=== PATIENT | male | born 1950 | race Caucasian/White ===

== ENCOUNTER 2023-09-05 23:00 | Observation (INO) ==
--- NOTE | 2023-09-05 23:12 | Emergency Department Note ---
Impression & Plan Syncope and collapse, Acute hypokalemia, Hypomagnesemia, Leukocytosis, Generalized weakness ED Provider Note HISTORY OF PRESENT ILLNESS: Patient is a 72-year-old male presenting with abdominal pain and after syncopal episode. Patient is amnestic to the events of the evening. The last thing he remembers was eating dinner. Per report from EMS, the patient has been having chronic constipation and abdominal pain for the last few weeks. He has recently been started on MiraLAX has been having diarrhea. He reportedly has had generalized abdominal pain recently. Today he went to have a bowel movement this evening and had a syncopal episode. Patient denies striking his head or loss of consciousness, but he does not remember it occurring. He is on aspirin and Plavix. He has a history of cardiac stents. Denies any current chest pain or shortness of breath. Reports feeling generally unwell. He denies any dark discoloration of his stool. He denies any recent fevers or dysuria. Patient did have 2 episodes of vomiting prior to EMS arrival. ROS: as above PHYSICAL EXAM: Constitutional: Patient appears in no acute distress. HENT: Head: Normocephalic and atraumatic. Eyes: EOMI, PERRL Mouth/Throat: Mucous membranes moist. Neck: Trachea midline. Neck supple. Cardiovascular: RRR, No murmurs, rubs or gallops. Intact distal pulses. Pulmonary/Chest: No respiratory distress. Breath sounds clear and equal bilaterally. No wheezes or rales. Abdominal: Abdomen soft, no tenderness, rebound or guarding. Musculoskeletal: No edema, tenderness or deformity noted. Skin: Warm and dry. No rash, erythema, pallor or cyanosis Psychiatric: Appropriate mood and affect for situation. Neurological: Alert and keenly responsive. CN II-XII grossly intact, moving all extremities equally and fully. MDM: - Vitals signs showed tachypnea and elevated temperature - History obtained via patient and EMS. History as above. - Chronic conditions affecting care: GERD; CAD (s/p PCI); HTN; HLD; rheumatoid arthritis - Differential diagnoses include, but are not limited to: CVA; intracranial hemorrhage; ACS; dysrhythmia; UTI; pneumonia; electrolyte abnormality - Order placed for continuous cardiac monitoring. At this time, monitor showed rate of 81 bpm with normal sinus rhythm, per my interpretation. - External medical records reviewed. Operative report dated 03/18/2022 was reviewed. Patient had symptomatic cholelithiasis and had a laparoscopic cholecystectomy performed on 03/18/2022. - EKG interpreted by myself showed normal sinus rhythm. Rate 81 bpm. QT 364. No acute ischemic changes - Laboratory workup interpreted by myself showed leukocytosis (WBC 11.27) with left shift; hypokalemia (K 3.4); hyponatremia (Na 131); hypomagnesemia (Mg 1.6); elevated total bilirubin (1.7); normal AST/ALT; normal CK; normal troponin; normal TSH; normal lipase - CXR negative for pneumonia, per my interpretation - CT head wo contrast negative for acute intracranial hemorrhage - CT abdomen/pelvis with IV contrast showed possible enterocolitis, per radiology. - Viral respiratory panel negative - Patient given 1g IV magnesium for electrolyte replacement. Given 1L NS and 1g IV tylenol for elevated temperature. - UA negative for infection. Noted to have trace ketones. - Discussion was had with director of casework services about patient's case and need for admission - Hospitalist consulted for admission - Patient admitted to [] service for further evaluation and management. ASSESSMENT AND PLAN: Diagnosis: syncope and collapse; leukocytosis; acute hypokalemia; hypomagnesemia; generalized weakness Plan: admit Past Med/Surg History Problem List (Updated 09/06/23 @ 02:38 by Usha Mata MD) Generalized weakness (Acute) Leukocytosis (Acute) Hypomagnesemia (Acute) Acute hypokalemia (Acute) Syncope and collapse (Acute) Hyperbilirubinemia (Acute) Abdominal pain (Acute) Lumbar stenosis with neurogenic claudication Encounter for pre-operative examination Choledocholithiasis Medical History Family history of reaction to anesthesia Sister slow to wake- groggy; pt denies any personal issues with anesthesia [place] (hard of hearing) Pancreatic cyst GERD (gastroesophageal reflux disease) Hiatal hernia Mitral valve prolapse Myocardial infarction 2005 CAD (coronary artery disease) S/p ramus and LCx stent (2005) S/p stent to LAD and RCA (2009) S/p stent to Ramus and LCx (2016) Hyperlipidemia Rheumatoid arthritis On Plaquenil HTN (hypertension) Surgical History Hx of endoscopic retrograde cholangiopancreatography 02/22/22 [place] History of colonoscopy History of bilateral hip replacements History of right shoulder replacement History of left shoulder replacement History of total right knee replacement History of back surgery 2003 History of endoscopy with ultrasound feb 21 2022 ([employer]) - stone in common bile duct & gallbladder is full of stones - had subsequent ERCP 02/22/22 History of cardiac cath Hx mi...stent x1 2006 stent x 1 2006, stent x 1 2009 History of lumbar fusion 2014 Family History Other No family history of adverse response to anesthesia Social History Smoking Status: Never smoker Second Hand Exposure: No; Hx Alcohol Use: Yes (OCCASSIONAL) Hx Substance Use: No Preferred Language: Chadian Communication Ability: Effective Communication Ability Comment: PT [place]/[facility] HELPS NEEDED PER PT REQUEST Driver Operator Required: No Beliefs That Will Affect Care: None Current Living Situation: Alone Feels Safe at Home: Yes Assistive Devices: Glasses and Hearing Aid - Right Allergies Allergies Allergy/AdvReac Type Severity Reaction Status Date / Time amoxicillin [From Augmentin] Allergy Intermediate Hives Verified 09/06/23 01:03 clavulanic acid Allergy Intermediate Hives Verified 09/06/23 01:03 [From Augmentin] indomethacin AdvReac Unknown pt not Verified 09/06/23 01:03 sure / doesn't sound familiar oxycodone AdvReac Unknown ? details Verified 09/06/23 01:03 unclear -HEAD FELT [id number] DOESN'T LIKE Home Meds Home Medications Medication Instructions Recorded Confirmed ascorbic acid (vitamin C) 500 mg 500 mg PO QAM 02/21/22 09/06/23 tablet aspirin 81 mg tablet,delayed 81 mg PO QAM 02/21/22 09/06/23 release atorvastatin 10 mg tablet 10 mg PO QPM 02/21/22 09/06/23 clopidogrel 75 mg tablet (Plavix) 75 mg PO QAM 02/21/22 09/06/23 coenzyme Q10 100 mg capsule 200 mg PO QPM 02/21/22 09/06/23 (CoQ-10) cyanocobalamin (vitamin B-12) 500 500 mcg PO QAM 02/21/22 09/06/23 mcg tablet (Vitamin B-12) folic acid 1 mg tablet 2 mg PO QAM 02/21/22 09/06/23 hydroxychloroquine 200 mg tablet 400 mg PO QAM 02/21/22 09/06/23 (Plaquenil) omeprazole 40 mg capsule,delayed 40 mg PO BID 02/21/22 09/06/23 release bimatoprost 0.01 % eye drops 1 drp OPB QPM 08/10/23 09/06/23 (Lumigan) cetirizine 10 mg tablet 10 mg PO DAILY 08/10/23 09/06/23 dorzolamide 22.3 mg-timolol 6.8 1 drp OPL TID 08/10/23 09/06/23 mg/mL eye drops fluticasone propionate 50 2 spray intranasal DAILY PRN 08/10/23 09/06/23 mcg/actuation nasal Congestion spray,suspension gabapentin 300 mg capsule 300 mg PO BID 08/10/23 09/06/23 zolpidem 10 mg tablet 10 mg PO HS PRN Sleep 08/10/23 09/06/23 famotidine 40 mg tablet 40 mg PO HS 09/06/23 09/06/23 metoprolol tartrate 50 mg tablet 25 mg PO BID 09/06/23 09/06/23 ondansetron 8 mg disintegrating 8 mg translingual Q6H PRN 09/06/23 09/06/23 tablet NAUSEA/VOMITING polyethylene glycol 3350 17 17 g PO BID 09/06/23 09/06/23 gram/dose oral powder (Miralax) turmeric root extract 1,053 mg 1,053 mg PO DAILY 09/06/23 09/06/23 tablet Results & Data (ED) Vital Signs Vital Signs - 24 hr 09/05/23 23:01 09/05/23 23:01 09/05/23 23:10 Temperature 37.7 C H Temperature Source Oral Pulse Rate - Lying Pulse Rate - Sitting Pulse Rate - Standing Pulse Rate 80 80 Respiratory Rate 26 H Respiratory Effort / Characteristics Non-Labored Respiratory Depth Normal Respiratory Pattern Regular Blood Pressure - Lying Blood Pressure - Sitting Blood Pressure- Standing Blood Pressure 130/74 Blood Pressure Mean 92 Pulse Oximetry 94 94 Oxygen Delivery Method Room Air Room Air Sepsis Recent Fever Within 48 Hours No Sepsis New/Unexplained Change in Mental Status N/A Sepsis Action Taken by Nursing No Action Required 09/05/23 23:18 09/05/23 23:21 09/05/23 23:42 Temperature Temperature Source Pulse Rate - Lying Pulse Rate - Sitting Pulse Rate - Standing Pulse Rate 79 80 81 Respiratory Rate 32 H 24 30 H Respiratory Effort / Characteristics Respiratory Depth Respiratory Pattern Blood Pressure - Lying Blood Pressure - Sitting Blood Pressure- Standing Blood Pressure 139/81 Blood Pressure Mean 100 Pulse Oximetry 93 94 95 Oxygen Delivery Method Room Air Room Air Room Air Sepsis Recent Fever Within 48 Hours Sepsis New/Unexplained Change in Mental Status Sepsis Action Taken by Nursing 09/06/23 00:00 09/06/23 00:57 09/06/23 01:12 Temperature Temperature Source Pulse Rate - Lying Pulse Rate - Sitting Pulse Rate - Standing Pulse Rate 82 91 H 89 Respiratory Rate 27 H 32 H 26 H Respiratory Effort / Characteristics Respiratory Depth Respiratory Pattern Blood Pressure - Lying Blood Pressure - Sitting Blood Pressure- Standing Blood Pressure 130/76 Blood Pressure Mean 94 Pulse Oximetry 93 92 92 Oxygen Delivery Method Room Air Room Air Room Air Sepsis Recent Fever Within 48 Hours Sepsis New/Unexplained Change in Mental Status Sepsis Action Taken by Nursing 09/06/23 01:39 09/06/23 02:00 09/06/23 02:15 Temperature 37.5 C Temperature Source Oral Pulse Rate - Lying Pulse Rate - Sitting Pulse Rate - Standing Pulse Rate 88 85 Respiratory Rate 24 24 Respiratory Effort / Characteristics Respiratory Depth Respiratory Pattern Blood Pressure - Lying Blood Pressure - Sitting Blood Pressure- Standing Blood Pressure 113/66 Blood Pressure Mean 81 Pulse Oximetry 90 94 Oxygen Delivery Method Room Air Room Air Sepsis Recent Fever Within 48 Hours Sepsis New/Unexplained Change in Mental Status Sepsis Action Taken by Nursing 09/06/23 02:47 09/06/23 03:02 Temperature Temperature Source Pulse Rate - Lying 83 Pulse Rate - Sitting 95 H Pulse Rate - Standing 90 Pulse Rate 86 Respiratory Rate Respiratory Effort / Characteristics Respiratory Depth Respiratory Pattern Blood Pressure - Lying 106/64 Blood Pressure - Sitting 108/69 Blood Pressure- Standing 107/63 Blood Pressure Blood Pressure Mean Pulse Oximetry Oxygen Delivery Method Sepsis Recent Fever Within 48 Hours Sepsis New/Unexplained Change in Mental Status Sepsis Action Taken by Nursing Laboratory Data 09/05/23 23:16 09/05/23 23:16 Lab Results 09/05/23 09/05/23 09/06/23 Range/Units 23:16 23:45 02:03 WBC 11.27 H (4.8-10.8) K/ul RBC 4.91 (4.70-6.10) M/uL Hgb 16.4 (14.0-18.0) g/dl Hct 44.9 (42.0-52.0) % MCV 91.4 (80.0-100.0) fL MCH 33.4 (25.0-34.0) pg MCHC 36.5 H (32.0-36.0) g/dL RDW Std Deviation 41.4 (36.4-46.3) fL RDW Coeff of Ranjan 12.5 (11.5-14.5) % Plt Count (130-400) K/uL MPV (9.4-12.4) fL Immature Gran % (Auto) 0.4 % Neut % (Auto) 96.1 % Lymph % (Auto) 2.0 % [place] % (Auto) 0.5 % Eos % (Auto) 0.7 % Baso % (Auto) 0.3 % Neut # (Auto) 10.83 H (1.40-6.50) K/uL Lymph # (Auto) 0.22 L (1.20-3.40) K/uL [place] # (Auto) 0.06 L (0.11-0.59) K/uL Eos # (Auto) 0.08 (0.00-0.50) K/uL Baso # (Auto) 0.03 (0.00-0.20) K/uL Immature Gran # (Auto) 0.05 (0.01-0.20) K/uL PT 12.9 H (9.0-12.0) Seconds INR 1.2 H (0.9-1.1) Sodium 131 L (136-145) mmol/L Potassium 3.4 L (3.5-5.1) mmol/L Chloride 99 (98-107) mmol/L Carbon Dioxide 23 (21-32) mmol/L Anion Gap 9 (3-11) BUN 10 (6-23) mg/dl Creatinine 0.72 (0.6-1.4) mg/dl Est Cr Clr Drug Dosing 64.9 ml/min Est GFR ( Amer) 106.5 ml/min Est GFR (Non-Af Amer) 91.9 ml/min BUN/Creatinine Ratio 13.9 (10-20) Glucose 106 H (70-99(Fasting)) mg/dl Calcium 8.8 (8.6-10.3) mg/dl Magnesium 1.6 L (1.7-2.4) mg/dl Total Bilirubin 1.7 H (0.2-1.0) mg/dl AST 17 (13-39) U/L ALT 15 (7-52) U/L Alkaline Phosphatase 83 (34-104) U/L Total Creatine Kinase 57 (30-223) U/L Troponin I High Sens 11.3 (0-20) pg/ml Total Protein 6.6 (6.0-8.3) gm/dl Albumin 4.0 (3.4-5.0) gm/dl Globulin 2.6 (2.5-4.0) gm/dl Albumin/Globulin Ratio 1.5 (0.9-2) Lipase 31 (11-82) U/L TSH 1.178 (0.300-4.500) uIu/ml Urine Color Yellow Urine Appearance Clear (Clear) Urine pH 6.5 (4.5-7.5) Ur Specific [place] 1.017 (1.000-1.030) Urine Protein Negative (Negative) Urine Glucose (UA) Negative (Negative) Urine Ketones Trace H (Negative) Urine Blood Negative (Negative) Urine Nitrite Negative (Negative) Urine Bilirubin Negative (Negative) Urine Urobilinogen Negative (Negative) Ur Leukocyte Esterase Negative (Negative) Adenovirus (PCR) Not Detected (NotDetected) B. pertussis DNA (PCR) Not Detected (NotDetected) B.parapertussis DNA PCR Not Detected (NotDetected) C. pneumoniae DNA (PCR) Not Detected (NotDetected) Coronavirus OC43 (PCR) Not Detected (NotDetected) Coronavirus HKU1 (PCR) Not Detected (NotDetected) Coronavirus 229E (PCR) Not Detected (NotDetected) SARS-CoV-2 (PCR) Not Detected (NotDetected) Coronavirus NL63 (PCR) Not Detected (NotDetected) Human Metapneumovir PCR Not Detected (NotDetected) Influenza Type A (PCR) Not Detected (NotDetected) Influenza Type B (PCR) Not Detected (NotDetected) M. pneumoniae (PCR) Not Detected (NotDetected) Parainfluenza 1 (PCR) Not Detected (NotDetected) Parainfluenza 2 (PCR) Not Detected (NotDetected) Parainfluenza 3 (PCR) Not Detected (NotDetected) Parainfluenza 4 (PCR) Not Detected (NotDetected) RSV (PCR) Not Detected (NotDetected) Entero/Rhino (PCR) Not Detected (NotDetected) Blood Type A Positive Antibody Screen NEGATIVE Administered Medications Discontinued Medications Sodium Chloride (Nss) 1,000 mls @ 999 mls/hr IV .Q1H1M ONE Stop: 09/06/23 00:36 Last Infusion: 09/06/23 00:44 Dose: Infused Documented By: Admin: 09/05/23 23:45 Dose: 999 mls/hr Documented By: LOCO Acetaminophen (Ofirmev) 1,000 mg in 100 mls @ 400 mls/hr IV NOW STA Stop: 09/06/23 01:22 Last Infusion: 09/06/23 02:00 Dose: Infused Documented By: Admin: 09/06/23 01:23 Dose: 400 mls/hr Documented By: LOCO Sodium Chloride (Nss) 1,000 mls @ 999 mls/hr IV .Q1H1M ONE Stop: 09/06/23 02:08 Last Infusion: 09/06/23 02:21 Dose: Infused Documented By: Admin: 09/06/23 01:20 Dose: 999 mls/hr Documented By: LOCO Magnesium Sulfate/Dextrose (Magnesium Sulfate / D5w) 1 gm in 100 mls @ 100 mls/hr IV NOW STA Stop: 09/06/23 02:07 Last Infusion: 09/06/23 02:21 Dose: Infused Documented By: Admin: 09/06/23 01:23 Dose: 100 mls/hr Documented By: LOCO Ioversol (Optiray 320 100ml) 94 ml IV ONCE ONE Stop: 09/06/23 00:36 Last Admin: 09/06/23 00:35 Dose: 94 ml Documented By: [facility] Imaging Data Radiologist's Impression: Abdomen/Pelvis CT 09/05/23 23:36 Exam(s): CT ABDOMEN + PELVIS With Contrast IV Amt: 94 ml opti 320 EXAM: CT Abdomen and Pelvis With Intravenous Contrast CLINICAL HISTORY: Reason for exam: abdominal pain; vomiting. TECHNIQUE: Axial computed tomography images of the abdomen and pelvis with intravenous contrast. Automated exposure control was utilized for the study. A dose lowering technique was utilized adhering to the principles of ALARA. Metal artifact from orthopedic hardware in the spine and bilateral hips. 94 ML Optiray 320 given IV. CONTRAST: Patient received 94 ml opti 320 of IV contrast COMPARISON: CT abdomen pelvis 09/01/23. FINDINGS: Lung bases: Linear scarring lung bases. Extensive coronary artery atherosclerosis. Liver: Stable pneumobilia. Gallbladder and bile ducts: Cholecystectomy. No ductal dilation. Pancreas: No ductal dilation. Spleen: Unremarkable. Adrenals: Unremarkable. Kidneys and ureters: No pyelonephritis or hydronephrosis. Stomach and bowel: Fairly collapsed small bowel and colon, wall thickening may be artifact, cannot rule out mild enterocolitis. No obstruction. Appendix: No acute appendicitis. Intraperitoneal space: No free air or fluid. Bones/joints: No acute fracture. Soft tissues: Unremarkable. Vasculature: Moderate aortoiliac atherosclerosis. No aortic aneurysm. Lymph nodes: No enlarged lymph nodes. Bladder: Moderately distended, may be physiologic, cannot rule out urinary retention. Reproductive: Unremarkable as visualized. IMPRESSION: 1. Possible enterocolitis versus artifact from under distention, correlate clinically. 2. No acute intra-abdominal or intrapelvic abnormality otherwise noted. Electronically signed by: Michelle Santillan M.D. 09/06/23 02:[address] 09/05/23 23:36 Exam(s): CT HEAD Without Contrast EXAM: CT Head Without Intravenous Contrast CLINICAL HISTORY: Reason for exam: syncope. TECHNIQUE: Axial computed tomography images of the head/brain without intravenous contrast. Automated exposure control was utilized for the study. A dose lowering technique was utilized adhering to the principles of ALARA. Mild motion artifact. COMPARISON: None. FINDINGS: Brain: No mass effect or acute infarct. No acute hemorrhage. Mild atrophy and chronic white matter disease. Ventricles: No hydrocephalus or midline shift. Bones/joints: No acute bony lesion. Degenerative change at C1-2 with mild pannus formation and moderate central spinal stenosis at the foramen magnum. Soft tissues: No scalp hematoma. Visualized Sinuses: Clear. Mastoid air cells: No mastoid effusion. IMPRESSION: 1. Mild age-related findings. 2. Degenerative change and moderate spinal stenosis at C1-2. Consider nonemergent neurosurgical consultation and MRI cervical spine as indicated. 3. No acute infarct, bleed, or acute intracranial abnormality. Electronically signed by: Michelle Santillan M.D. 09/06/23 01:05 AM Discharge Plan Visit Data Chief Complaint: Syncope Stated Complaint: Constipation, Syncope ED Provider: Usha Mata Discharge Problem: Syncope and collapse, Acute hypokalemia, Hypomagnesemia, Leukocytosis, Generalized weakness Forms Stand Alone Forms: My [facility] [employer] Prescriptions Prescriptions: No Action atorvastatin 10 mg Tablet 10 mg PO QPM clopidogrel [Plavix] 75 mg Tablet 75 mg PO QAM omeprazole 40 mg Capsule,Delayed Release(Dr/Ec) 40 mg PO BID aspirin 81 mg Tablet,Delayed Release (Dr/Ec) 81 mg PO QAM cyanocobalamin (vitamin B-12) [Vitamin B-12] 500 mcg Tablet 500 mcg PO QAM ascorbic acid (vitamin C) 500 mg Tablet 500 mg PO QAM folic acid 1 mg Tablet 2 mg PO QAM hydroxychloroquine [Plaquenil] 200 mg Tablet 400 mg PO QAM coenzyme Q10 [CoQ-10] 100 mg Capsule 200 mg PO QPM cetirizine 10 mg tablet 10 mg PO DAILY gabapentin 300 mg capsule 300 mg PO BID dorzolamide-timolol 22.3-6.8 mg/mL drops 1 drp OPL TID zolpidem 10 mg tablet 10 mg PO HS PRN (Reason: Sleep) fluticasone propionate 50 mcg/actuation spray,suspension 2 spray INTRANASAL DAILY PRN (Reason: Congestion) Lumigan 0.01 % drops 1 drp OPB QPM famotidine 40 mg Tablet 40 mg PO HS ondansetron 8 mg tablet,disintegrating 8 mg translingual Q6H PRN (Reason: NAUSEA/VOMITING) metoprolol tartrate 50 mg tablet 25 mg PO BID polyethylene glycol 3350 [Miralax] 17 gram/dose Powder 17 g PO BID Rx Instructions: PER RYAN 09/02/23--USE BID X 1 WEEK, THEN DAILY THEREAFTER. turmeric root extract 1,053 mg Tablet 1,053 mg PO DAILY Referrals Referrals: Todd Spivey [Primary Care Provider] -
[2023-09-05] MEDS: SODIUM CHLORIDE 0.9% 1,000 ML IV ONE (23:45)
[2023-09-06 00:06] LABS: Albumin Globulin Ratio 1.5 (0.9-2); BUN Creatinine Ratio 13.9 (10-20); Bilirubin,Total 1.7 mg/dl (0.2-1.0); Calcium 8.8 mg/dl (8.6-10.3); Creatinine Clr Calc Pharmacy 64.9 ml/min; Est GFR (African American) 106.5 ml/min; Est GFR (Non-African American) 91.9 ml/min; Globulin 2.6 gm/dl (2.5-4.0); Magnesium 1.6 mg/dl (1.7-2.4); Potassium 3.4 mmol/L (3.5-5.1); Total Protein 6.6 gm/dl (6.0-8.3)
[2023-09-06 00:12] LABS: Troponin I High Sensitivity 11.3 pg/ml (0-20)
[2023-09-06 00:14] LABS: INR 1.2 (0.9-1.1); Prothrombin Time 12.9 Seconds (9.0-12.0)
[2023-09-06 00:21] LABS: Thyroid Stimulating Hormone 1.178 uIu/ml (0.300-4.500)
[2023-09-06] MEDS: OPTIRAY 320 100ml IV ONE (00:35)
[2023-09-06 00:44] LABS: Adenovirus PCR Not Detected (NotDetected); Bordetella parapertussis PCR Not Detected (NotDetected); Bordetella pertussis PCR Not Detected (NotDetected); Chlamydia pneumoniae PCR Not Detected (NotDetected); Coronavirus 229E PCR Not Detected (NotDetected); Coronavirus CoV-2 (COVID19)PCR Not Detected (NotDetected); Coronavirus HKU1 PCR Not Detected (NotDetected); Coronavirus NL63 PCR Not Detected (NotDetected); Coronavirus OC43PCR Not Detected (NotDetected); Human Metapneumovirus PCR Not Detected (NotDetected); Influenza A PCR Not Detected (NotDetected); Influenza B PCR Not Detected (NotDetected); Mycoplasma pneumoniae PCR Not Detected (NotDetected); Parainfluenza Virus 1 PCR Not Detected (NotDetected); Parainfluenza Virus 2 PCR Not Detected (NotDetected); Parainfluenza Virus 3 PCR Not Detected (NotDetected); Parainfluenza Virus 4 PCR Not Detected (NotDetected); Respiratory Syncytial VirusPCR Not Detected (NotDetected); Rhinovirus/Enterovirus PCR Not Detected (NotDetected)
[2023-09-06 00:51] LABS: Hematocrit (blood only) 44.9 % (42.0-52.0); Hemoglobin 16.4 g/dl (14.0-18.0); Mean Corpuscular Hemoglobin 33.4 pg (25.0-34.0); Mean Corpuscular Hgb Conc 36.5 g/dL (32.0-36.0); Mean Corpuscular Volume 91.4 fL (80.0-100.0); RDW Coefficient of Variation 12.5 % (11.5-14.5); RDW Standard Deviation 41.4 fL (36.4-46.3); Red Blood Count 4.91 M/uL (4.70-6.10); White Blood Count 11.27 K/ul (4.8-10.8)
[2023-09-06 00:52] LABS: Basophils # (auto) 0.03 K/uL (0.00-0.20); Basophils % (auto) 0.3 %; Eosinophils # (auto) 0.08 K/uL (0.00-0.50); Eosinophils % (auto) 0.7 %; Immature Granulocytes # (auto) 0.05 K/uL (0.01-0.20); Immature Granulocytes % (auto) 0.4 %; Lymphocytes # (auto) 0.22 K/uL (1.20-3.40); Monocytes # (auto) 0.06 K/uL (0.11-0.59); Monocytes % (auto) 0.5 %; Neutrophils # (auto) 10.83 K/uL (1.40-6.50); Neutrophils % (auto) 96.1 %
--- NOTE | 2023-09-06 01:06 | CT Scan Report ---
Exam(s): CT HEAD Without Contrast EXAM: CT Head Without Intravenous Contrast CLINICAL HISTORY: Reason for exam: syncope. TECHNIQUE: Axial computed tomography images of the head/brain without intravenous contrast. Automated exposure control was utilized for the study. A dose lowering technique was utilized adhering to the principles of ALARA. Mild motion artifact. COMPARISON: None. FINDINGS: Brain: No mass effect or acute infarct. No acute hemorrhage. Mild atrophy and chronic white matter disease. Ventricles: No hydrocephalus or midline shift. Bones/joints: No acute bony lesion. Degenerative change at C1-2 with mild pannus formation and moderate central spinal stenosis at the foramen magnum. Soft tissues: No scalp hematoma. Visualized Sinuses: Clear. Mastoid air cells: No mastoid effusion. IMPRESSION: 1. Mild age-related findings. 2. Degenerative change and moderate spinal stenosis at C1-2. Consider nonemergent neurosurgical consultation and MRI cervical spine as indicated. 3. No acute infarct, bleed, or acute intracranial abnormality. Electronically signed by: Michelle Santillan M.D. 09/06/23 01:05 AM
[2023-09-06] MEDS: SODIUM CHLORIDE 0.9% 1,000 ML IV ONE (01:20)
[2023-09-06] MEDS: ACETAMINOPHEN 1,000 MG/100 ML VIAL IV STA (01:23)
[2023-09-06] MEDS: MAGNESIUM SULFATE / D5W 1 GM/100 ML BAG IV STA (01:23)
--- NOTE | 2023-09-06 02:08 | CT Scan Report ---
Exam(s): CT ABDOMEN + PELVIS With Contrast IV Amt: 94 ml opti 320 EXAM: CT Abdomen and Pelvis With Intravenous Contrast CLINICAL HISTORY: Reason for exam: abdominal pain; vomiting. TECHNIQUE: Axial computed tomography images of the abdomen and pelvis with intravenous contrast. Automated exposure control was utilized for the study. A dose lowering technique was utilized adhering to the principles of ALARA. Metal artifact from orthopedic hardware in the spine and bilateral hips. 94 ML Optiray 320 given IV. CONTRAST: Patient received 94 ml opti 320 of IV contrast COMPARISON: CT abdomen pelvis 09/01/23. FINDINGS: Lung bases: Linear scarring lung bases. Extensive coronary artery atherosclerosis. Liver: Stable pneumobilia. Gallbladder and bile ducts: Cholecystectomy. No ductal dilation. Pancreas: No ductal dilation. Spleen: Unremarkable. Adrenals: Unremarkable. Kidneys and ureters: No pyelonephritis or hydronephrosis. Stomach and bowel: Fairly collapsed small bowel and colon, wall thickening may be artifact, cannot rule out mild enterocolitis. No obstruction. Appendix: No acute appendicitis. Intraperitoneal space: No free air or fluid. Bones/joints: No acute fracture. Soft tissues: Unremarkable. Vasculature: Moderate aortoiliac atherosclerosis. No aortic aneurysm. Lymph nodes: No enlarged lymph nodes. Bladder: Moderately distended, may be physiologic, cannot rule out urinary retention. Reproductive: Unremarkable as visualized. IMPRESSION: 1. Possible enterocolitis versus artifact from under distention, correlate clinically. 2. No acute intra-abdominal or intrapelvic abnormality otherwise noted. Electronically signed by: Michelle Santillan M.D. 09/06/23 02:07 AM
[2023-09-06 02:14] LABS: Appearance Urine Clear (Clear); Bilirubin Urine Negative (Negative); Blood Urine Negative (Negative); Color Urine Yellow; Glucose Urine UA Negative (Negative); Ketones Urine Trace (Negative); Leukocyte Esterase Urine Negative (Negative); Nitrite Urine Negative (Negative); Protein Urine Negative (Negative); Specific Gravity Urine 1.017 (1.000-1.030); Urobilinogen Urine Negative (Negative); pH Urine 6.5 (4.5-7.5)
[2023-09-06] MEDS: NSS + 20MEQ KCL 20 MEQ/1,000 ML BAG IV STA (04:22)
--- NOTE | 2023-09-06 05:07 | History & Physical Report ---
Date of Service September 06, 2023 Assessment & Plan (1) Syncope: Plan: Likely secondary to orthostasis from post laxative diarrhea Rule out progression of valvular heart disease (hx moderate AR/MR/TR) chronic systolic heart failure, patient on the dry side CAD status post stent/PVD hyperlipidemia, on statin Rx GERD, on PPI and H2 makayla history of choledocholithiasis rheumatoid arthritis on hydroxychloroquine Urinary retention likely secondary to BPH past tobacco abuse OBS Medical telemetry IVF Hold MiraLAX Hold home BP meds for now TTE Re: Syncope Inpatient GI consult as per patient family request. Re: Abdominal pain of 6 weeks duration (Patient family insisting on inpatient consult despite being informed that Dr. Bonner will not likely be consulting specialist.) Urology consult Re: Urinary retention, prostatic enlargement PT OT eval once medically stable. DVT prophylaxis. Lovenox subcu Full code Patient sister requesting updates providers. Ms. Isabel Corona, contact numbers [phone]. Text document was generated using LIFT12 voice recognition software. It may contain grammatical or spelling errors. Kindly contact undersigned for clarification of any documentation item in question. History of Present Illness Chief Complaint: Syncope Primary Care Provider: Todd Spivey History obtained from patient, family, and records. Medical history significant for chronic systolic heart failure (EF 40%, TTE 2021), CAD status post stent, PVD, hypertension, hyperlipidemia, valvular heart disease (moderate AR/MR/TR, TTE 2021), GERD, history of choledocholithiasis, rheumatoid arthritis, prostate enlargement, past tobacco abuse. 6 weeks ago, patient upper abdominal discomfort more in the right with nausea and poor appetite symptoms. 08/09 Patient evaluated at [facility] ER. CT abdomen and pelvis showed prostatomegaly/bladder outlet obstruction. Patient advised to follow-up with [facility] GI specialist. 08/20 Outpatient endoscopy done at [facility] facility. Normal EGD. ERCP showed sludge. Biliary sphincterotomy performed. Persistent abdominal discomfort post endoscopy as per patient. Good bowel movement. 08/29 Plain x-ray of the abdomen requested by GI specialist showed moderate colonic fecal material. MiraLAX course prescribed by GI specialist. Increasing abdominal discomfort with watery diarrhea. Patient/family did not think of stopping laxative Rx from GI specialist. 08/31 Patient consulted [facility] ER. CT abdomen pelvis showed 1. No acute process within the abdomen or pelvis. 2. Pneumobilia, as expected. No CT evidence for pancreatitis. 3. No bowel obstruction. No bowel wall thickening. Normal appendix. Patient discharged home and advised to follow-up with GI specialist. Continued abdominal discomfort with diarrhea at home. Urinary retention symptoms present since last year. No fever, no chills. Increasing weakness. Unresponsive episode for about 5 minutes while on the commode. Patient denies headache, chest pain, SOB. Lowest SBP of 90s documented at the ER. 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 details Verified 09/06/23 01:03 unclear -HEAD FELT [id number] DOESN'T LIKE Home Medications Medication Instructions Recorded Confirmed Type ascorbic acid (vitamin C) 500 mg 500 mg PO QAM 02/21/22 09/06/23 History tablet aspirin 81 mg tablet,delayed 81 mg PO QAM 02/21/22 09/06/23 History release atorvastatin 10 mg tablet 10 mg PO QPM 02/21/22 09/06/23 History coenzyme Q10 100 mg capsule 200 mg PO QPM 02/21/22 09/06/23 History (CoQ-10) cyanocobalamin (vitamin B-12) 500 500 mcg PO QAM 02/21/22 09/06/23 History mcg tablet (Vitamin B-12) folic acid 1 mg tablet 2 mg PO QAM 02/21/22 09/06/23 History hydroxychloroquine 200 mg tablet 400 mg PO QAM 02/21/22 09/06/23 History (Plaquenil) omeprazole 40 mg capsule,delayed 40 mg PO BID 02/21/22 09/06/23 History release bimatoprost 0.01 % eye drops 1 drp OPB QPM 08/10/23 09/06/23 History (Lumigan) cetirizine 10 mg tablet 10 mg PO DAILY 08/10/23 09/06/23 History dorzolamide 22.3 mg-timolol 6.8 1 drp OPL TID 08/10/23 09/06/23 History mg/mL eye drops fluticasone propionate 50 2 spray intranasal DAILY PRN 08/10/23 09/06/23 History mcg/actuation nasal Congestion spray,suspension gabapentin 300 mg capsule 300 mg PO BID 08/10/23 09/06/23 History zolpidem 10 mg tablet 10 mg PO HS PRN Sleep 08/10/23 09/06/23 History Plavix 75 mg PO DAILY 09/06/23 09/06/23 History famotidine 40 mg tablet 40 mg PO HS 09/06/23 09/06/23 History metoprolol tartrate 50 mg tablet 25 mg PO BID 09/06/23 09/06/23 History ondansetron 8 mg disintegrating 8 mg translingual Q6H PRN 09/06/23 09/06/23 History tablet NAUSEA/VOMITING polyethylene glycol 3350 17 17 g PO BID 09/06/23 09/06/23 History gram/dose oral powder (Miralax) turmeric root extract 1,053 mg 1,053 mg PO DAILY 09/06/23 09/06/23 History tablet Past Med/Surg History Problem List Urinary retention Syncope Generalized weakness (Acute) Leukocytosis (Acute) Hypomagnesemia (Acute) Acute hypokalemia (Acute) Syncope and collapse (Acute) Hyperbilirubinemia (Acute) Abdominal pain (Acute) Lumbar stenosis with neurogenic claudication Encounter for pre-operative examination Choledocholithiasis Medical History Family history of reaction to anesthesia Sister slow to wake- groggy; pt denies any personal issues with anesthesia [place] (hard of hearing) Pancreatic cyst GERD (gastroesophageal reflux disease) Hiatal hernia Mitral valve prolapse Myocardial infarction 2005 CAD (coronary artery disease) S/p ramus and LCx stent (2005) S/p stent to LAD and RCA (2009) S/p stent to Ramus and LCx (2017) Hyperlipidemia Rheumatoid arthritis On Plaquenil HTN (hypertension) Surgical History Hx of endoscopic retrograde [place]reatography 02/22/22 [place] History of colonoscopy History of bilateral hip replacements History of right shoulder replacement History of left shoulder replacement History of total right knee replacement History of back surgery 2003 History of endoscopy with ultrasound feb 21 2022 ([employer]) - stone in common bile duct & gallbladder is full of stones - had subsequent ERCP 02/22/22 History of cardiac cath Hx mi...stent x1 2006 stent x 1 2006, stent x 1 2009 History of lumbar fusion 2014 Family History Other No family history of adverse response to anesthesia Social History Smoking Status: Never smoker Second Hand Exposure: No; Hx Alcohol Use: Yes (OCCASSIONAL) Hx Substance Use: No Preferred Language: German Communication Ability: Effective Communication Ability Comment: PT [place]/SISTER ISABEL HELPS NEEDED PER PT REQUEST Printing Assistant Required: No Beliefs That Will Affect Care: None Current Living Situation: Alone Feels Safe at Home: Yes Assistive Devices: Glasses and Hearing Aid - Right Review of Systems Review of Systems: As per HPI, all other systems reviewed and negative Physical Exam Physical Exam: GENERAL: Comfortable, slightly hard of hearing, no respiratory distress SKIN: Normal color, warm HEENT: Alopecia, Ewen palpebral conjunctivae, no ptosis, dry buccal mucosa NECK : Supple, no tenderness CHEST : CTA, no tenderness HEART : RRR, systolic murmur ABDOMEN: Some distention, minimal central abdominal tenderness EXTREMITIES : No LE swelling/tenderness, no other conspicuous deformities noted NEUROLOGIC : Coherent, no facial asymmetry, slightly hard of hearing, gait and stance not assessed Results & Data Results & Data Vital Signs (Past 12 Hours) Vital Signs Temp Pulse Pulse Resp BP BP Pulse Ox 09/06/23 03:02 86 09/06/23 03:00 83 17 94/58 L 93 09/06/23 02:15 37.5 C 09/06/23 02:00 85 24 113/66 94 09/06/23 01:39 88 24 90 09/06/23 01:12 89 26 H 92 09/06/23 00:57 91 H 32 H 130/76 92 09/06/23 00:00 82 27 H 93 09/05/23 23:42 81 30 H 139/81 95 09/05/23 23:21 80 24 94 09/05/23 23:18 79 32 H 93 09/05/23 23:10 80 09/05/23 23:01 94 09/05/23 23:01 37.7 C H 80 26 H 130/74 94 O2 Del Method 09/06/23 03:02 09/06/23 03:00 Room Air 09/06/23 02:15 09/06/23 02:00 Room Air 09/06/23 01:39 Room Air 09/06/23 01:12 Room Air 09/06/23 00:57 Room Air 09/06/23 00:00 Room Air 09/05/23 23:42 Room Air 09/05/23 23:21 Room Air 09/05/23 23:18 Room Air 09/05/23 23:10 09/05/23 23:01 Room Air 09/05/23 23:01 Room Air Laboratory Results Laboratory Results WBC 11.27 K/ul (4.8-10.8) H 09/05/23 23:16 RBC 4.91 M/uL (4.70-6.10) 09/05/23 23:16 Hgb 16.4 g/dl (14.0-18.0) 09/05/23 23:16 Hct 44.9 % (42.0-52.0) 09/05/23 23:16 MCV 91.4 fL (80.0-100.0) 09/05/23 23:16 MCH 33.4 pg (25.0-34.0) 09/05/23 23:16 MCHC 36.5 g/dL (32.0-36.0) H 09/05/23 23:16 RDW Std Deviation 41.4 fL (36.4-46.3) 09/05/23 23:16 RDW Coeff of Ranjan 12.5 % (11.5-14.5) 09/05/23 23:16 Plt Count K/uL (130-400) 09/05/23 23:16 MPV fL (9.4-12.4) 09/05/23 23:16 Immature Gran % (Auto) 0.4 % 09/05/23 23:16 Neut % (Auto) 96.1 % 09/05/23 23:16 Lymph % (Auto) 2.0 % 09/05/23 23:16 Mower % (Auto) 0.5 % 09/05/23 23:16 Eos % (Auto) 0.7 % 09/05/23 23:16 Baso % (Auto) 0.3 % 09/05/23 23:16 Neut # (Auto) 10.83 K/uL (1.40-6.50) H 09/05/23 23:16 Lymph # (Auto) 0.22 K/uL (1.20-3.40) L 09/05/23 23:16 Mower # (Auto) 0.06 K/uL (0.11-0.59) L 09/05/23 23:16 Eos # (Auto) 0.08 K/uL (0.00-0.50) 09/05/23 23:16 Baso # (Auto) 0.03 K/uL (0.00-0.20) 09/05/23 23:16 Immature Gran # (Auto) 0.05 K/uL (0.01-0.20) 09/05/23 23:16 PT 12.9 Seconds (9.0-12.0) H 09/05/23 23:16 INR 1.2 (0.9-1.1) H 09/05/23 23:16 Sodium 131 mmol/L (136-145) L 09/05/23 23:16 Potassium 3.4 mmol/L (3.5-5.1) L 09/05/23 23:16 Chloride 99 mmol/L (98-107) 09/05/23 23:16 Carbon Dioxide 23 mmol/L (21-32) 09/05/23 23:16 Anion Gap 9 (3-11) 09/05/23 23:16 BUN 10 mg/dl (6-23) 09/05/23 23:16 Creatinine 0.72 mg/dl (0.6-1.4) 09/05/23 23:16 Est Cr Clr Drug Dosing 64.9 ml/min 09/05/23 23:16 Est GFR ( Amer) 106.5 ml/min 09/05/23 23:16 Est GFR (Non-Af Amer) 91.9 ml/min 09/05/23 23:16 BUN/Creatinine Ratio 13.9 (10-20) 09/05/23 23:16 Glucose 106 mg/dl (70-99(Fasting)) H 09/05/23 23:16 Calcium 8.8 mg/dl (8.6-10.3) 09/05/23 23:16 Magnesium 1.6 mg/dl (1.7-2.4) L 09/05/23 23:16 Total Bilirubin 1.7 mg/dl (0.2-1.0) H 09/05/23 23:16 AST 17 U/L (13-39) 09/05/23 23:16 ALT 15 U/L (7-52) 09/05/23 23:16 Alkaline Phosphatase 83 U/L (34-104) 09/05/23 23:16 Total Creatine Kinase 57 U/L (30-223) 09/05/23 23:16 Troponin I High Sens 11.7 pg/ml (0-20) 09/06/23 02:18 Total Protein 6.6 gm/dl (6.0-8.3) 09/05/23 23:16 Albumin 4.0 gm/dl (3.4-5.0) 09/05/23 23:16 Globulin 2.6 gm/dl (2.5-4.0) 09/05/23 23:16 Albumin/Globulin Ratio 1.5 (0.9-2) 09/05/23 23:16 Lipase 31 U/L (11-82) 09/05/23 23:16 TSH 1.178 uIu/ml (0.300-4.500) 09/05/23 23:16 Urine Color Yellow 09/06/23 02:03 Urine Appearance Clear (Clear) 09/06/23 02:03 Urine pH 6.5 (4.5-7.5) 09/06/23 02:03 Ur Specific [place] 1.017 (1.000-1.030) 09/06/23 02:03 Urine Protein Negative (Negative) 09/06/23 02:03 Urine Glucose (UA) Negative (Negative) 09/06/23 02:03 Urine Ketones Trace (Negative) H 09/06/23 02:03 Urine Blood Negative (Negative) 09/06/23 02:03 Urine Nitrite Negative (Negative) 09/06/23 02:03 Urine Bilirubin Negative (Negative) 09/06/23 02:03 Urine Urobilinogen Negative (Negative) 09/06/23 02:03 Ur Leukocyte Esterase Negative (Negative) 09/06/23 02:03 Adenovirus (PCR) Not Detected (NotDetected) 09/05/23 23:45 B. pertussis DNA (PCR) Not Detected (NotDetected) 09/05/23 23:45 B.parapertussis DNA PCR Not Detected (NotDetected) 09/05/23 23:45 C. pneumoniae DNA (PCR) Not Detected (NotDetected) 09/05/23 23:45 Coronavirus OC43 (PCR) Not Detected (NotDetected) 09/05/23 23:45 Coronavirus HKU1 (PCR) Not Detected (NotDetected) 09/05/23 23:45 Coronavirus 229E (PCR) Not Detected (NotDetected) 09/05/23 23:45 SARS-CoV-2 (PCR) Not Detected (NotDetected) 09/05/23 23:45 Coronavirus NL63 (PCR) Not Detected (NotDetected) 09/05/23 23:45 Human Metapneumovir PCR Not Detected (NotDetected) 09/05/23 23:45 Influenza Type A (PCR) Not Detected (NotDetected) 09/05/23 23:45 Influenza Type B (PCR) Not Detected (NotDetected) 09/05/23 23:45 M. pneumoniae (PCR) Not Detected (NotDetected) 09/05/23 23:45 Parainfluenza 1 (PCR) Not Detected (NotDetected) 09/05/23 23:45 Parainfluenza 2 (PCR) Not Detected (NotDetected) 09/05/23 23:45 Parainfluenza 3 (PCR) Not Detected (NotDetected) 09/05/23 23:45 Parainfluenza 4 (PCR) Not Detected (NotDetected) 09/05/23 23:45 RSV (PCR) Not Detected (NotDetected) 09/05/23 23:45 Entero/Rhino (PCR) Not Detected (NotDetected) 09/05/23 23:45 Blood Type A Positive 09/05/23 23:16 Antibody Screen NEGATIVE 09/05/23 23:16 Impressions Abdomen/Pelvis CT 09/05/23 23:36 Exam(s): CT ABDOMEN + PELVIS With Contrast IV Amt: 94 ml opti 320 EXAM: CT Abdomen and Pelvis With Intravenous Contrast CLINICAL HISTORY: Reason for exam: abdominal pain; vomiting. TECHNIQUE: Axial computed tomography images of the abdomen and pelvis with intravenous contrast. Automated exposure control was utilized for the study. A dose lowering technique was utilized adhering to the principles of ALARA. Metal artifact from orthopedic hardware in the spine and bilateral hips. 94 ML Optiray 320 given IV. CONTRAST: Patient received 94 ml opti 320 of IV contrast COMPARISON: CT abdomen pelvis 09/01/23. FINDINGS: Lung bases: Linear scarring lung bases. Extensive coronary artery atherosclerosis. Liver: Stable pneumobilia. Gallbladder and bile ducts: Cholecystectomy. No ductal dilation. Pancreas: No ductal dilation. Spleen: Unremarkable. Adrenals: Unremarkable. Kidneys and ureters: No pyelonephritis or hydronephrosis. Stomach and bowel: Fairly collapsed small bowel and colon, wall thickening may be artifact, cannot rule out mild enterocolitis. No obstruction. Appendix: No acute appendicitis. Intraperitoneal space: No free air or fluid. Bones/joints: No acute fracture. Soft tissues: Unremarkable. Vasculature: Moderate aortoiliac atherosclerosis. No aortic aneurysm. Lymph nodes: No enlarged lymph nodes. Bladder: Moderately distended, may be physiologic, cannot rule out urinary retention. Reproductive: Unremarkable as visualized. IMPRESSION: 1. Possible enterocolitis versus artifact from under distention, correlate clinically. 2. No acute intra-abdominal or intrapelvic abnormality otherwise noted. Electronically signed by: Michelle Santillan M.D. 09/06/23 02:[address] 09/05/23 23:36 Exam(s): CT HEAD Without Contrast EXAM: CT Head Without Intravenous Contrast CLINICAL HISTORY: Reason for exam: syncope. TECHNIQUE: Axial computed tomography images of the head/brain without intravenous contrast. Automated exposure control was utilized for the study. A dose lowering technique was utilized adhering to the principles of ALARA. Mild motion artifact. COMPARISON: None. FINDINGS: Brain: No mass effect or acute infarct. No acute hemorrhage. Mild atrophy and chronic white matter disease. Ventricles: No hydrocephalus or midline shift. Bones/joints: No acute bony lesion. Degenerative change at C1-2 with mild pannus formation and moderate central spinal stenosis at the foramen magnum. Soft tissues: No scalp hematoma. Visualized Sinuses: Clear. Mastoid air cells: No mastoid effusion. IMPRESSION: 1. Mild age-related findings. 2. Degenerative change and moderate spinal stenosis at C1-2. Consider nonemergent neurosurgical consultation and MRI cervical spine as indicated. 3. No acute infarct, bleed, or acute intracranial abnormality. Electronically signed by: Michelle Santillan M.D. 09/06/23 01:05 AM Diagnostic Findings EKG as per my interpretation : Rate 80, NSR, LAD, LSB, nonspecific T wave abnormalities
[2023-09-06] MEDS ORDERED: PROMETHAZINE HCL 6.25 MG in SODIUM CHLORIDE 0.9% 50 ML IV PRN (05:13)
[2023-09-06] MEDS ORDERED: traMADol HCL 50 MG TABLET PO PRN (05:13)
[2023-09-06] MEDS ORDERED: FLUTICASONE PROPIONATE NA SPR 16 GM BTL PRN (06:11)
[2023-09-06 07:53] LABS: Hematocrit (blood only) 39.5 % (42.0-52.0); Hemoglobin 14.2 g/dl (14.0-18.0); Mean Corpuscular Hemoglobin 33.6 pg (25.0-34.0); Mean Corpuscular Hgb Conc 35.9 g/dL (32.0-36.0); Mean Corpuscular Volume 93.6 fL (80.0-100.0); Mean Platelet Volume 10.5 fL (9.4-12.4); Platelet Count 125 K/uL (130-400); RDW Standard Deviation 43.8 fL (36.4-46.3); Red Blood Count 4.22 M/uL (4.70-6.10); White Blood Count 20.94 K/ul (4.8-10.8)
[2023-09-06 08:01] LABS: BUN Creatinine Ratio 11.4 (10-20); Calcium 7.8 mg/dl (8.6-10.3); Creatinine Clr Calc Pharmacy 66.8 ml/min; Est GFR (African American) 107.8 ml/min; Magnesium 1.8 mg/dl (1.7-2.4); Potassium 3.6 mmol/L (3.5-5.1)
--- NOTE | 2023-09-06 08:12 | XRay Report ---
XR chest 1V portable HISTORY: syncope COMPARISON: Chest 08/10/2023. FINDINGS: No pneumothorax. No pleural effusions. No focal lung consolidations to suggest pneumonia. N o evidence for pulmonary edema. There is a small right azygos lobe. Calcifications within the aortic knob. Bilateral total shoulder arthroplasties are noted. IMPRESSION: No significant change compared to the prior study. No acute process. ACT 112: Negative or not required by law. Electronically signed by: Reza Ratliff M.D. 09/06/2023 8:11 AM
[2023-09-06 08:15] LABS: Basophils # (auto) 0.04 K/uL (0.00-0.20); Basophils % (auto) 0.2 %; Eosinophils # (auto) 0.06 K/uL (0.00-0.50); Eosinophils % (auto) 0.3 %; Immature Granulocytes # (auto) 0.37 K/uL (0.01-0.20); Immature Granulocytes % (auto) 1.8 %; Lymphocytes % (auto) 1.4 %; Monocytes # (auto) 0.98 K/uL (0.11-0.59); Monocytes % (auto) 4.7 %; Neutrophils # (auto) 19.19 K/uL (1.40-6.50); Neutrophils % (auto) 91.6 %
--- NOTE | 2023-09-06 08:17 | Urology Consultation ---
Date of Consultation September 06, 2023 Assessment & Plan (1) Urinary retention: Plan 72-year-old male admitted for syncopal episode likely due to dehydration from diarrhea. Unable to urinate with straight cath for slightly over 300 cc. Urology consulted. If patient is unable to void again, recommend placing a Banda catheter Recommend starting Flomax 0.4 mg daily If patient is able to void, urology can schedule an outpatient evaluation discussed urinary symptoms. If patient is unable to void has a Banda catheter placed we can either attempt a void trial depended on his hospitalization course or if he goes home soon can set up a void trial in clinic Urology to follow peripherally History of Present Illness Attending Physician: Aroldo Ortiz MD History of Present Illness 72-year-old male admitted to the hospital due to syncope. Urology consulted for urinary retention. Leukocytosis 20.9 today, sodium 132, creatinine stable at 0.7. Urinalysis was negative. CT scan of the abdomen pelvis was performed which I independently reviewed and showed a distended bladder but otherwise no other urologic abnormalities. Bladder scan was done this morning at 306 cc. Patient reports he is unable to void and he was straight catheterized once. He does report feeling like he has to pee but again tried was unsuccessful. He has a history of postop urinary retention following a cholecystectomy. He denies any major urinary symptoms at home. He has never seen a urologist before. He has never been on any medications to help with his urinary symptoms. No family history of urologic pathology. He states he is a constipation was taking several capfuls of MiraLAX a day and had diarrhea and became dehydrated which led to his syncopal episode. Allergies Allergy/AdvReac Type Severity Reaction Status Date / Time amoxicillin [From Augmentin] Allergy Intermediate Hives Verified 09/06/23 01:03 clavulanic acid Allergy Intermediate Hives Verified 09/06/23 01:03 [From Augmentin] indomethacin AdvReac Unknown pt not Verified 09/06/23 01:03 sure / doesn't sound familiar oxycodone AdvReac Unknown ? details Verified 09/06/23 01:03 unclear -HEAD FELT [id number] DOESN'T LIKE Home Medications Medication Instructions Recorded Confirmed Type ascorbic acid (vitamin C) 500 mg 500 mg PO QAM 02/21/22 09/06/23 History tablet aspirin 81 mg tablet,delayed 81 mg PO QAM 02/21/22 09/06/23 History release atorvastatin 10 mg tablet 10 mg PO QPM 02/21/22 09/06/23 History coenzyme Q10 100 mg capsule 200 mg PO QPM 02/21/22 09/06/23 History (CoQ-10) cyanocobalamin (vitamin B-12) 500 500 mcg PO QAM 02/21/22 09/06/23 History mcg tablet (Vitamin B-12) folic acid 1 mg tablet 2 mg PO QAM 02/21/22 09/06/23 History hydroxychloroquine 200 mg tablet 400 mg PO QAM 02/21/22 09/06/23 History (Plaquenil) omeprazole 40 mg capsule,delayed 40 mg PO BID 02/21/22 09/06/23 History release bimatoprost 0.01 % eye drops 1 drp OPB QPM 08/10/23 09/06/23 History (Shaheed) cetirizine 10 mg tablet 10 mg PO DAILY 08/10/23 09/06/23 History dorzolamide 22.3 mg-timolol 6.8 1 drp OPL TID 08/10/23 09/06/23 History mg/mL eye drops fluticasone propionate 50 2 spray intranasal DAILY PRN 08/10/23 09/06/23 History mcg/actuation nasal Congestion spray,suspension gabapentin 300 mg capsule 300 mg PO BID 08/10/23 09/06/23 History zolpidem 10 mg tablet 10 mg PO HS PRN Sleep 08/10/23 09/06/23 History Plavix 75 mg PO DAILY 09/06/23 09/06/23 History famotidine 40 mg tablet 40 mg PO HS 09/06/23 09/06/23 History metoprolol tartrate 50 mg tablet 25 mg PO BID 09/06/23 09/06/23 History ondansetron 8 mg disintegrating 8 mg translingual Q6H PRN 09/06/23 09/06/23 History tablet NAUSEA/VOMITING polyethylene glycol 3350 17 17 g PO BID 09/06/23 09/06/23 History gram/dose oral powder (Miralax) turmeric root extract 1,053 mg 1,053 mg PO DAILY 09/06/23 09/06/23 History tablet Patient History Medical History Family history of reaction to anesthesia Sister slow to wake- groggy; pt denies any personal issues with anesthesia [place] (hard of hearing) Pancreatic cyst GERD (gastroesophageal reflux disease) Hiatal hernia Mitral valve prolapse Myocardial infarction 2006 CAD (coronary artery disease) S/p ramus and LCx stent (2005) S/p stent to LAD and RCA (2009) S/p stent to Ramus and LCx (2016) Hyperlipidemia Rheumatoid arthritis On Plaquenil HTN (hypertension) Surgical History Hx of endoscopic retrograde cholang[place]reatography 02/22/22 [place] History of colonoscopy History of bilateral hip replacements History of right shoulder replacement History of left shoulder replacement History of total right knee replacement History of back surgery 2003 History of endoscopy with ultrasound feb 21 2022 ([employer]) - stone in common bile duct & gallbladder is full of stones - had subsequent ERCP 02/22/22 History of cardiac cath Hx mi...stent x1 2005 stent x 1 2006, stent x 1 2009 History of lumbar fusion 2014 Family History Other No family history of adverse response to anesthesia Social History Smoking Status: Never smoker Second Hand Exposure: No; Hx Alcohol Use: Yes (OCCASSIONAL) Hx Substance Use: No Preferred Language: Slovenian Communication Ability: Effective Communication Ability Comment: PT [place]/SISTER ISABEL HELPS NEEDED PER PT REQUEST Technology Training Associate Required: No Beliefs That Will Affect Care: None Current Living Situation: Alone Feels Safe at Home: Yes Assistive Devices: Glasses and Hearing Aid - Right Physical Exam Physical Exam: General: Alert and oriented, no acute distress HEENT: Normocephalic, mucous membranes moist Pulmonary: Nonlabored respirations Abdomen: Nondistended Extremities: Moves all 4 spontaneously Neuro: No gross deficits Skin: Warm, dry, no rashes noted Results & Data Vital Signs (Past 12 Hours) Vital Signs Temp Pulse Pulse Resp BP BP Pulse Ox 09/06/23 06:42 36.8 C 77 18 97/56 L 97 09/06/23 05:00 82 17 93/57 L 97 09/06/23 03:02 86 09/06/23 03:00 83 17 94/58 L 93 09/06/23 02:15 37.5 C 09/06/23 02:00 85 24 113/66 94 09/06/23 01:39 88 24 90 09/06/23 01:12 89 26 H 92 09/06/23 00:57 91 H 32 H 130/76 92 09/06/23 00:00 82 27 H 93 09/05/23 23:42 81 30 H 139/81 95 09/05/23 23:21 80 24 94 09/05/23 23:18 79 32 H 93 09/05/23 23:10 80 09/05/23 23:01 94 09/05/23 23:01 37.7 C H 80 26 H 130/74 94 O2 Del Method 09/06/23 06:42 Room Air 09/06/23 05:00 Room Air 09/06/23 03:02 09/06/23 03:00 Room Air 09/06/23 02:15 09/06/23 02:00 Room Air 09/06/23 01:39 Room Air 09/06/23 01:12 Room Air 09/06/23 00:57 Room Air 09/06/23 00:00 Room Air 09/05/23 23:42 Room Air 09/05/23 23:21 Room Air 09/05/23 23:18 Room Air 09/05/23 23:10 09/05/23 23:01 Room Air 09/05/23 23:01 Room Air PG Care Time/CCT Total # of Minutes Spent Total Time Spent with Patient: Total time spent is greater than 50% in coordination of care (as documented) at patient's floor/unit and/or counseling patient: Coding Level of Care Code 09851 INT INP/OBS CARE 2/55MIN Diagnoses Urinary retention R33.9
[2023-09-06] MEDS: FOLIC ACID 1 MG TAB PO SCH (09:41)
[2023-09-06] MEDS: ASPIRIN 81 MG ECTAB PO SCH (09:41)
[2023-09-06] MEDS: CLOPIDOGREL BISULFATE 75 MG TAB PO SCH (09:41)
[2023-09-06] MEDS: CYANOCOBALAMIN (B-12) 500 MCG TABLET PO SCH (09:41)
[2023-09-06] MEDS: ENOXAPARIN INJ 40 MG/0.4 ML SYR SQ SCH (09:42)
[2023-09-06] MEDS: DORZOLAMIDE/TIMOLOL 22.3/6.8MG/ML 10 ML BTL OPL SCH (09:42)
[2023-09-06] MEDS: GABAPENTIN 300 MG CAP PO SCH (09:42)
[2023-09-06] MEDS: PANTOprazole 40 MG TAB PO SCH (09:42)
[2023-09-06] MEDS: HYDROXYCHLOROQUINE SULFATE 200 MG TAB PO SCH (09:43)
[2023-09-06] MEDS: CETIRIZINE HCL 10 MG TABLET PO SCH ×2 (10:01→20:39)
--- NOTE | 2023-09-06 10:06 | Gastrointestinal Consultation ---
Date of Consultation September 06, 2023 Assessment & Plan (1) Abdominal pain: Pleasant man with longstanding abdominal pain that is being worked up and managed by Dr. Bonner. He has had recent EGD and ERCP to evaluate and/or manage his issues. He has continued to have pain despite that. Constipation has been addressed recently with miralax and he isn't clear as to whether having a bowel movement helps his pain. I don't think he was syncopal related to diarrhea as he wasn't having enough diarrhea to lead to that and miralax does not tend to cause dehydration at bowel movement management doses. It is not clear as to whether he has an enterocolitis due to the way the bowel was on CT but I don't get the idea that that is what is going on. I don't have access to records at [facility] to see when he has had a colonoscopy most recently. For lack of anything else, for now I will put him on low dose Bentyl to see if that will help. History of Present Illness Reason for Consultation: abdominal pain for two months Attending Physician: Aroldo Ortiz MD History of Present Illness 72 year old man who has been dealing with abdominal pain for about two months. He has had pain for some time now over the years. He had his gallbladder out and then seems to have had a CBD stone. He had ERCP to remove that. More recen tly he was having more pain and had an EGD and another ERCP and a biliary stent was placed for "sludge". He describes pain around his belly button that will be there for a few days and then might go away for a week. Yesterday the pain worsened and he says he passed out. Earlier Dr. Bonner felt he was bound up so he started him on miralax twice daily. He took it intermittently and was having two loose stools per day. They day he passed out he only had one watery stool. CT scan on admit revealed urinary retention and evidence of pneumobilia from prior sphincterotomy. No stent seen or mentioned although to my eyes there seems to be some dense material in the bile duct in the liver. There is also mention of "possible enterocolitis" but not definite since bowel is collapsed. Allergies Allergy/AdvReac Type Severity Reaction Status Date / Time amoxicillin [From Augmentin] Allergy Intermediate Hives Verified 09/06/23 01:03 clavulanic acid Allergy Intermediate Hives Verified 09/06/23 01:03 [From Augmentin] indomethacin AdvReac Unknown pt not Verified 09/06/23 01:03 sure / doesn't sound familiar oxycodone AdvReac Unknown ? details Verified 09/06/23 01:03 unclear -HEAD FELT [id number] DOESN'T LIKE Home Medications Medication Instructions Recorded Confirmed Type ascorbic acid (vitamin C) 500 mg 500 mg PO QAM 02/21/22 09/06/23 History tablet aspirin 81 mg tablet,delayed 81 mg PO QAM 02/21/22 09/06/23 History release atorvastatin 10 mg tablet 10 mg PO QPM 02/21/22 09/06/23 History coenzyme Q10 100 mg capsule 200 mg PO QPM 02/21/22 09/06/23 History (CoQ-10) cyanocobalamin (vitamin B-12) 500 500 mcg PO QAM 02/21/22 09/06/23 History mcg tablet (Vitamin B-12) folic acid 1 mg tablet 2 mg PO QAM 02/21/22 09/06/23 History hydroxychloroquine 200 mg tablet 400 mg PO QAM 02/21/22 09/06/23 History (Plaquenil) omeprazole 40 mg capsule,delayed 40 mg PO BID 02/21/22 09/06/23 History release bimatoprost 0.01 % eye drops 1 drp OPB QPM 08/10/23 09/06/23 History (Lumigan) cetirizine 10 mg tablet 10 mg PO DAILY 08/10/23 09/06/23 History dorzolamide 22.3 mg-timolol 6.8 1 drp OPL TID 08/10/23 09/06/23 History mg/mL eye drops fluticasone propionate 50 2 spray intranasal DAILY PRN 08/10/23 09/06/23 History mcg/actuation nasal Congestion spray,suspension gabapentin 300 mg capsule 300 mg PO BID 08/10/23 09/06/23 History zolpidem 10 mg tablet 10 mg PO HS PRN Sleep 08/10/23 09/06/23 History Plavix 75 mg PO DAILY 09/06/23 09/06/23 History famotidine 40 mg tablet 40 mg PO HS 09/06/23 09/06/23 History metoprolol tartrate 50 mg tablet 25 mg PO BID 09/06/23 09/06/23 History ondansetron 8 mg disintegrating 8 mg translingual Q6H PRN 09/06/23 09/06/23 History tablet NAUSEA/VOMITING polyethylene glycol 3350 17 17 g PO BID 09/06/23 09/06/23 History gram/dose oral powder (Miralax) turmeric root extract 1,053 mg 1,053 mg PO DAILY 09/06/23 09/06/23 History tablet Patient History Medical History Family history of reaction to anesthesia Sister slow to wake- groggy; pt denies any personal issues with anesthesia CHICKALOON (hard of hearing) Pancreatic cyst GERD (gastroesophageal reflux disease) Hiatal hernia Mitral valve prolapse Myocardial infarction 2005 CAD (coronary artery disease) S/p ramus and LCx stent (2005) S/p stent to LAD and RCA (2009) S/p stent to Ramus and LCx (2016) Hyperlipidemia Rheumatoid arthritis On Plaquenil HTN (hypertension) Surgical History Hx of endoscopic retrograde cholangiopancreatography 02/22/22 [place] History of colonoscopy History of bilateral hip replacements History of right shoulder replacement History of left shoulder replacement History of total right knee replacement History of back surgery 2003 History of endoscopy with ultrasound feb 21 2022 (Ziptr) - stone in common bile duct & gallbladder is full of stones - had subsequent ERCP 02/22/22 History of cardiac cath Hx mi...stent x1 2005 stent x 1 2006, stent x 1 2009 History of lumbar fusion 2014 Family History Other No family history of adverse response to anesthesia Social History Smoking Status: Never smoker Second Hand Exposure: No; Hx Alcohol Use: Yes (OCCASSIONAL) Hx Substance Use: No Preferred Language: Yoruba Communication Ability: Effective Communication Ability Comment: 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 PER PT REQUEST Used Car [employer]ov[employer] Required: No Beliefs That Will Affect Care: None Current Living Situation: Alone Feels Safe at Home: Yes Assistive Devices: Glasses and Hearing Aid - Right Review of Systems Review of Systems: All systems reviewed & are unremarkable except as noted in HPI & below Physical Exam Constitutional: WD/WN, vitals as above Neck: trachea midline, no thyromegaly Respiratory: normal respiratory effort, lungs clear to auscultation Cardiovascular: RRR, no murmur, no edema Gastrointestinal (Abdomen): normal bowel sounds, soft, nontender, no hepatosplenomegaly Results & Data Vital Signs (Past 12 Hours) Vital Signs Temp Pulse Pulse Resp BP BP Pulse Ox 09/06/23 08:52 75 09/06/23 06:42 36.8 C 77 18 97/56 L 97 09/06/23 05:00 82 17 93/57 L 97 09/06/23 03:02 86 09/06/23 03:00 83 17 94/58 L 93 09/06/23 02:15 37.5 C 09/06/23 02:00 85 24 113/66 94 09/06/23 01:39 88 24 90 09/06/23 01:12 89 26 H 92 09/06/23 00:57 91 H 32 H 130/76 92 09/06/23 00:00 82 27 H 93 09/05/23 23:42 81 30 H 139/81 95 09/05/23 23:21 80 24 94 09/05/23 23:18 79 32 H 93 09/05/23 23:10 80 09/05/23 23:01 94 09/05/23 23:01 37.7 C H 80 26 H 130/74 94 O2 Del Method 09/06/23 08:52 09/06/23 06:42 Room Air 09/06/23 05:00 Room Air 09/06/23 03:02 09/06/23 03:00 Room Air 09/06/23 02:15 09/06/23 02:00 Room Air 09/06/23 01:39 Room Air 09/06/23 01:12 Room Air 09/06/23 00:57 Room Air 09/06/23 00:00 Room Air 09/05/23 23:42 Room Air 09/05/23 23:21 Room Air 09/05/23 23:18 Room Air 09/05/23 23:10 09/05/23 23:01 Room Air 09/05/23 23:01 Room Air Laboratory Results 09/06/23 09/06/23 09/06/23 Range/Units 07:08 07:04 02:18 WBC 20.94 H D (4.8-10.8) K/ul RBC 4.22 L (4.70-6.10) M/uL Hgb 14.2 (14.0-18.0) g/dl Hct 39.5 L (42.0-52.0) % MCV 93.6 (80.0-100.0) fL MCH 33.6 (25.0-34.0) pg MCHC 35.9 (32.0-36.0) g/dL RDW Std Deviation 43.8 (36.4-46.3) fL RDW Coeff of Ranjan 13.0 (11.5-14.5) % Plt Count 125 L (130-400) K/uL MPV 10.5 (9.4-12.4) fL Immature Gran % (Auto) 1.8 % Neut % (Auto) 91.6 % Lymph % (Auto) 1.4 % [place] % (Auto) 4.7 % Eos % (Auto) 0.3 % Baso % (Auto) 0.2 % Neut # (Auto) 19.19 H (1.40-6.50) K/uL Lymph # (Auto) 0.30 L (1.20-3.40) K/uL [place] # (Auto) 0.98 H (0.11-0.59) K/uL Eos # (Auto) 0.06 (0.00-0.50) K/uL Baso # (Auto) 0.04 (0.00-0.20) K/uL Immature Gran # (Auto) 0.37 H (0.01-0.20) K/uL PT (9.0-12.0) Seconds INR (0.9-1.1) Sodium 132 L (136-145) mmol/L Potassium 3.6 (3.5-5.1) mmol/L Chloride 102 (98-107) mmol/L Carbon Dioxide 25 (21-32) mmol/L Anion Gap 5 (3-11) BUN 8 (6-23) mg/dl Creatinine 0.70 (0.6-1.4) mg/dl Est Cr Clr Drug Dosing 66.8 ml/min Est GFR ( Amer) 107.8 ml/min Est GFR (Non-Af Amer) 93.0 ml/min BUN/Creatinine Ratio 11.4 (10-20) Glucose 114 H (70-99(Fasting)) mg/dl Lactate 1.6 (0.4-2.0) mmol/L Calcium 7.8 L (8.6-10.3) mg/dl Magnesium 1.8 (1.7-2.4) mg/dl Total Bilirubin (0.2-1.0) mg/dl AST (13-39) U/L ALT (7-52) U/L Alkaline Phosphatase (34-104) U/L Total Creatine Kinase (30-223) U/L Troponin I High Sens 11.7 (0-20) pg/ml Total Protein (6.0-8.3) gm/dl Albumin (3.4-5.0) gm/dl Globulin (2.5-4.0) gm/dl Albumin/Globulin Ratio (0.9-2) Lipase (11-82) U/L TSH (0.300-4.500) uIu/ml Urine Color Urine Appearance (Clear) Urine pH (4.5-7.5) Ur Specific [place] (1.000-1.030) Urine Protein (Negative) Urine Glucose (UA) (Negative) Urine Ketones (Negative) Urine Blood (Negative) Urine Nitrite (Negative) Urine Bilirubin (Negative) Urine Urobilinogen (Negative) Ur Leukocyte Esterase (Negative) Adenovirus (PCR) (NotDetected) B. pertussis DNA (PCR) (NotDetected) B.parapertussis DNA PCR (NotDetected) C. pneumoniae DNA (PCR) (NotDetected) Coronavirus OC43 (PCR) (NotDetected) Coronavirus HKU1 (PCR) (NotDetected) Coronavirus 229E (PCR) (NotDetected) SARS-CoV-2 (PCR) (NotDetected) Coronavirus NL63 (PCR) (NotDetected) Human Metapneumovir PCR (NotDetected) Influenza Type A (PCR) (NotDetected) Influenza Type B (PCR) (NotDetected) M. pneumoniae (PCR) (NotDetected) Parainfluenza 1 (PCR) (NotDetected) Parainfluenza 2 (PCR) (NotDetected) Parainfluenza 3 (PCR) (NotDetected) Parainfluenza 4 (PCR) (NotDetected) RSV (PCR) (NotDetected) Entero/Rhino (PCR) (NotDetected) Blood Type Antibody Screen 09/06/23 09/05/23 09/05/23 Range/Units 02:03 23:45 23:16 WBC 11.27 H (4.8-10.8) K/ul RBC 4.91 (4.70-6.10) M/uL Hgb 16.4 (14.0-18.0) g/dl Hct 44.9 (42.0-52.0) % MCV 91.4 (80.0-100.0) fL MCH 33.4 (25.0-34.0) pg MCHC 36.5 H (32.0-36.0) g/dL RDW Std Deviation 41.4 (36.4-46.3) fL RDW Coeff of Ranjan 12.5 (11.5-14.5) % Plt Count (130-400) K/uL MPV (9.4-12.4) fL Immature Gran % (Auto) 0.4 % Neut % (Auto) 96.1 % Lymph % (Auto) 2.0 % [place] % (Auto) 0.5 % Eos % (Auto) 0.7 % Baso % (Auto) 0.3 % Neut # (Auto) 10.83 H (1.40-6.50) K/uL Lymph # (Auto) 0.22 L (1.20-3.40) K/uL [place] # (Auto) 0.06 L (0.11-0.59) K/uL Eos # (Auto) 0.08 (0.00-0.50) K/uL Baso # (Auto) 0.03 (0.00-0.20) K/uL Immature Gran # (Auto) 0.05 (0.01-0.20) K/uL PT 12.9 H (9.0-12.0) Seconds INR 1.2 H (0.9-1.1) Sodium 131 L (136-145) mmol/L Potassium 3.4 L (3.5-5.1) mmol/L Chloride 99 (98-107) mmol/L Carbon Dioxide 23 (21-32) mmol/L Anion Gap 9 (3-11) BUN 10 (6-23) mg/dl Creatinine 0.72 (0.6-1.4) mg/dl Est Cr Clr Drug Dosing 64.9 ml/min Est GFR ( Amer) 106.5 ml/min Est GFR (Non-Af Amer) 91.9 ml/min BUN/Creatinine Ratio 13.9 (10-20) Glucose 106 H (70-99(Fasting)) mg/dl Lactate (0.4-2.0) mmol/L Calcium 8.8 (8.6-10.3) mg/dl Magnesium 1.6 L (1.7-2.4) mg/dl Total Bilirubin 1.7 H (0.2-1.0) mg/dl AST 17 (13-39) U/L ALT 15 (7-52) U/L Alkaline Phosphatase 83 (34-104) U/L Total Creatine Kinase 57 (30-223) U/L Troponin I High Sens 11.3 (0-20) pg/ml Total Protein 6.6 (6.0-8.3) gm/dl Albumin 4.0 (3.4-5.0) gm/dl Globulin 2.6 (2.5-4.0) gm/dl Albumin/Globulin Ratio 1.5 (0.9-2) Lipase 31 (11-82) U/L TSH 1.178 (0.300-4.500) uIu/ml Urine Color Yellow Urine Appearance Clear (Clear) Urine pH 6.5 (4.5-7.5) Ur Specific [place] 1.017 (1.000-1.030) Urine Protein Negative (Negative) Urine Glucose (UA) Negative (Negative) Urine Ketones Trace H (Negative) Urine Blood Negative (Negative) Urine Nitrite Negative (Negative) Urine Bilirubin Negative (Negative) Urine Urobilinogen Negative (Negative) Ur Leukocyte Esterase Negative (Negative) Adenovirus (PCR) Not Detected (NotDetected) B. pertussis DNA (PCR) Not Detected (NotDetected) B.parapertussis DNA PCR Not Detected (NotDetected) C. pneumoniae DNA (PCR) Not Detected (NotDetected) Coronavirus OC43 (PCR) Not Detected (NotDetected) Coronavirus HKU1 (PCR) Not Detected (NotDetected) Coronavirus 229E (PCR) Not Detected (NotDetected) SARS-CoV-2 (PCR) Not Detected (NotDetected) Coronavirus NL63 (PCR) Not Detected (NotDetected) Human Metapneumovir PCR Not Detected (NotDetected) Influenza Type A (PCR) Not Detected (NotDetected) Influenza Type B (PCR) Not Detected (NotDetected) M. pneumoniae (PCR) Not Detected (NotDetected) Parainfluenza 1 (PCR) Not Detected (NotDetected) Parainfluenza 2 (PCR) Not Detected (NotDetected) Parainfluenza 3 (PCR) Not Detected (NotDetected) Parainfluenza 4 (PCR) Not Detected (NotDetected) RSV (PCR) Not Detected (NotDetected) Entero/Rhino (PCR) Not Detected (NotDetected) Blood Type A Positive Antibody Screen NEGATIVE Diagnostic Findings Chest X-Ray 09/05/23 23:01 XR chest 1V portable HISTORY: syncope COMPARISON: Chest 08/10/2023. FINDINGS: No pneumothorax. No pleural effusions. No focal lung consolidations to suggest pneumonia. No evidence for pulmonary edema. There is a small right azygos lobe. Calcifications within the aortic knob. Bilateral total shoulder arthroplasties are noted. IMPRESSION: No significant change compared to the prior study. No acute process. ACT 112: Negative or not required by law. Electronically signed by: Reza Ratliff M.D. 09/06/2023 8:11 AM Abdomen/Pelvis CT 09/05/23 23:36 Exam(s): CT ABDOMEN + PELVIS With Contrast IV Amt: 94 ml opti 320 EXAM: CT Abdomen and Pelvis With Intravenous Contrast CLINICAL HISTORY: Reason for exam: abdominal pain; vomiting. TECHNIQUE: Axial computed tomography images of the abdomen and pelvis with intravenous contrast. Automated exposure control was utilized for the study. A dose lowering technique was utilized adhering to the principles of ALARA. Metal artifact from orthopedic hardware in the spine and bilateral hips. 94 ML Optiray 320 given IV. CONTRAST: Patient received 94 ml opti 320 of IV contrast COMPARISON: CT abdomen pelvis 09/01/23. FINDINGS: Lung bases: Linear scarring lung bases. Extensive coronary artery atherosclerosis. Liver: Stable pneumobilia. Gallbladder and bile ducts: Cholecystectomy. No ductal dilation. Pancreas: No ductal dilation. Spleen: Unremarkable. Adrenals: Unremarkable. Kidneys and ureters: No pyelonephritis or hydronephrosis. Stomach and bowel: Fairly collapsed small bowel and colon, wall thickening may be artifact, cannot rule out mild enterocolitis. No obstruction. Appendix: No acute appendicitis. Intraperitoneal space: No free air or fluid. Bones/joints: No acute fracture. Soft tissues: Unremarkable. Vasculature: Moderate aortoiliac atherosclerosis. No aortic aneurysm. Lymph nodes: No enlarged lymph nodes. Bladder: Moderately distended, may be physiologic, cannot rule out urinary retention. Reproductive: Unremarkable as visualized. IMPRESSION: 1. Possible enterocolitis versus artifact from under distention, correlate clinically. 2. No acute intra-abdominal or intrapelvic abnormality otherwise noted. Electronically signed by: Michelle Santillan M.D. 09/06/23 02:[address] 09/05/23 23:36 Exam(s): CT HEAD Without Contrast EXAM: CT Head Without Intravenous Contrast CLINICAL HISTORY: Reason for exam: syncope. TECHNIQUE: Axial computed tomography images of the head/brain without intravenous contrast. Automated exposure control was utilized for the study. A dose lowering technique was utilized adhering to the principles of ALARA. Mild motion artifact. COMPARISON: None. FINDINGS: Brain: No mass effect or acute infarct. No acute hemorrhage. Mild atrophy and chronic white matter disease. Ventricles: No hydrocephalus or midline shift. Bones/joints: No acute bony lesion. Degenerative change at C1-2 with mild pannus formation and moderate central spinal stenosis at the foramen magnum. Soft tissues: No scalp hematoma. Visualized Sinuses: Clear. Mastoid air cells: No mastoid effusion. IMPRESSION: 1. Mild age-related findings. 2. Degenerative change and moderate spinal stenosis at C1-2. Consider nonemergent neurosurgical consultation and MRI cervical spine as indicated. 3. No acute infarct, bleed, or acute intracranial abnormality. Electronically signed by: Michelle Santillan M.D. 09/06/23 01:05 AM (1) Abdominal pain Abdominal location: periumbilical Qualified Code(s): R10.33 - Periumbilical pain
[2023-09-06] MEDS: DICYCLOMINE HCL 10 MG CAP PO SCH (11:23)
[2023-09-06] MEDS: NSS + 20MEQ KCL 20 MEQ/1,000 ML BAG IV SCH (16:05)
--- NOTE | 2023-09-06 16:27 | Hospitalist Progress Note ---
Date of Service September 06, 2023 Assessment & Plan (1) Syncope: Plan: Syncope Moderate cervicals spinal stenosis ? Related to spinal artery stenosis DD: Dehydration secondary to diarrhea Patient reports h/o carotid artery disease Normal orthostatics Monitor on telemetry to rule out arrhythmias --CT Head:Mild age-related findings. Degenerative change and moderate spinal stenosis at C1-2. Consider nonemergent neurosurgical consultation and MRI cervical spine as indicated. No acute infarct, bleed, or acute intracranial abnormality. -ECHO: Left ventricle EF 55 to 60%. Mild concentric LVH. Small sized basal inferior and posterior wall abnormality with hypokinesis to akinesis of the segments. Mild mitral regurgitation. Mild aortic regurgitation. Mild tricuspid regurgitation. Findings do not suggest pulmonary hypertension. -Check carotid Doppler studies Consulted orthopedic spine for input Received IV fluids Possible enterocolitis Ongoing abdominal pain associated with constipation Likely overflow diarrhea h/o choledocholithiasis --CT ABD:Possible enterocolitis versus artifact from under distention, correlate clinically. No acute intra-abdominal or intrapelvic abnormality otherwise noted. -- BioFire negative --Stool studies pending --Patient recently had EGD, ERCP as per record --Trial of Bentyl for pain control --Advance diet as tolerated --GI on board --Will consider adding antibiotics if patient develops fever, worsening leukocytosis Urinary retention due to BPH Bladder scan as needed Added Flomax Urology consulted Replace Banda catheter if urinary retention worsens Chronic hyponatremia Sodium 132 today Monitor Chronic systolic heart failure CAD S/P stent PVD Hyperlipidemia Continue aspirin, Plavix, statin GERD on PPI and famotidine Rheumatoid arthritis on hydroxychloroquine Past tobacco abuse as per record DVT Px: Lovenox SQ Code Status Full code Admission and Anticipated Discharge Date Admission Date: September 06, 2023 Subjective Patient is seen and examined at bedside Reports having abdominal pain about the same as yesterday Also reports nausea No diarrhea today Denies any chest pain, dyspnea No other complaints Review of Systems Review of Systems: All systems reviewed & are unremarkable except as noted in Subjective Physical Exam Physical Exam: Physical Exam: Vitals signs as noted above General Appearance:Moderately built and nourished, no apparent distress Head: normocephalic, Atraumatic Eyes: normal inspection, EOMI Neck: supple, Trachea midline Respiratory/Chest: Normal breath sounds, CTA, No accessory muscle use Cardiovascular: S1, S2, + murmur Abdomen/GI:Soft, mild tender, Bowel sounds present Extremities/Musculoskeletal:normal inspection, no edema Neurologic/Psych:AAOX3, grossly no focal neurological deficits Skin: normal color, warm Results & Data Results & Data Vital Signs (Past 12 Hours) Vital Signs Temp Pulse Pulse Resp BP Pulse Ox O2 Del Method 09/06/23 15:26 79 09/06/23 12:00 Room Air 09/06/23 12:00 37.1 C 77 18 118/70 95 Room Air 09/06/23 11:44 77 09/06/23 10:43 76 18 124/80 96 Room Air 09/06/23 08:52 75 09/06/23 06:42 36.8 C 77 18 97/56 L 97 Room Air 09/06/23 05:00 82 17 93/57 L 97 Room Air Laboratory Results Short CBC 09/05/23 09/06/23 Range/Units 23:16 07:04 WBC 11.27 H 20.94 H D (4.8-10.8) K/ul Hgb 16.4 14.2 (14.0-18.0) g/dl Hct 44.9 39.5 L (42.0-52.0) % Plt Count 125 L (130-400) K/uL BMP 09/05/23 09/06/23 23:16 07:04 Sodium 131 L 132 L Potassium 3.4 L 3.6 Chloride 99 102 Carbon Dioxide 23 25 BUN 10 8 Creatinine 0.72 0.70 Glucose 106 H 114 H Calcium 8.8 7.8 L Cardiac Enzymes 09/05/23 Range/Units 23:16 Total Creatine Kinase 57 (30-223) U/L Liver Function 09/05/23 Range/Units 23:16 Total Bilirubin 1.7 H (0.2-1.0) mg/dl AST 17 (13-39) U/L ALT 15 (7-52) U/L Alkaline Phosphatase 83 (34-104) U/L Albumin 4.0 (3.4-5.0) gm/dl Urine 09/06/23 Range/Units 02:03 Urine Color Yellow Urine Appearance Clear (Clear) Urine pH 6.5 (4.5-7.5) Ur Specific [place] 1.017 (1.000-1.030) Urine Protein Negative (Negative) Urine Glucose (UA) Negative (Negative)
--- OUTSIDE RECORDS SUMMARY | 2023-09-06 20:22 | External Medical Summary | Summary of Care ---
Author Name Unknown Organization [facility] Address [address] [address] Phone [phone] Care Team Providers Care Supervisor/Port Director Name Role Phone Todd Spivey MD Primary Care Provider [phone] Reason for Visit * Reason Onset Date Comments Test Results Imaging Study 09/02/2023 Encounter Details Date Type Department Care Team (Late st Contact Info) Description 09/02/2023 Telephone Gastroenterology, [facility] [address] [place] [address] Agnieszka Bonner, [address] [place] [phone] Test Results Imaging Study Allergies Active Allergy Reactions Criticality Noted Date Comments Amoxicillin-Pot Clavulanate Diarrhea 03/12/20 23 Allergy to combo drug documented as of this encounter (statuses as of 09/02/2023) Medications Medication Sig Dispensed Refills Start Date End Date Status Clopidogrel Bisulfate 75 MG Oral Tablet (pLAVix) Take 1 Tablet by mouth in the morning. Active Metoprolol Tartrate 50 MG Oral Tablet (Lopressor) Take 1 Tablet by mouth in the morning and 1 Tablet before bedtime. Take 1/2 tab twice daily. Active Aspirin EC 81 MG Oral Tablet Delayed Release Take 1 Tablet by mouth in the morning. Active Folic Acid 1 MG Oral Tablet Take 2 Tablets by mouth in the morning. Active Hydroxychloroquine Sulfate 200 MG Oral Tablet (Plaquenil) Take 2 Tablets by mouth in the morning. Active Super C-500 Complex Oral Tablet Extended Release Take 1 Tablet by mouth every morning. Active Vitamin B12 500 MCG Oral Tablet Take 1 mg by mouth every morning. Active Omeprazole 40 MG Oral Capsule Delayed Release (PriLOSEC) Take 1 Capsule by mouth in the morning and 1 Capsule in the evening. Active Co Q10 200 MG Oral Capsule Take by mouth every morning. Active Turmeric 1053 MG Oral Tablet Take by mouth every morning. Active Atorvastatin Calcium 10 MG Oral Tablet (Lipitor) Take 1 Tablet by mouth every evening. Active Gabapentin 300 MG Oral Capsule (Neurontin) Take 1 Capsule by mouth in the morning and 1 Capsule in the evening. Active Famotidine 40 MG Oral Tablet Take 1 Tablet by mouth every evening. Active Cetirizine HCl 10 MG Oral Tablet (ZyrTEC) Take 1 Tablet by mouth at bedtime. 02/04/2022 Active Polyethylene Glycol 3350 17 GM/SCOOP Oral Powder (MiraLax) Take 17 g by mouth in the morning. Use 17 gm 2 times daily for 1 week, then 1 time daily therafter.. 850 g 1 09/02/2023 Active documented as of this encounter (statuses as of 09/02/2023) Active Problems No known active problems documented as of this encounter (statuses as of 09/02/2023) Social History Tobacco Use Types Packs/Day Years Used Date Smoking Tobacco: Never Smokeless Tobacco: Never Sex and Gender Information Value Date Recorded Sex Assigned at Not on file Gender Identity Not on file Sexual Orientation Not on file Job Start Date Occupation Industry Not on file Not on file Not on file documented as of this encounter Miscellaneous Notes * Telephone Encounter - Agnieszka Bonner DO - 09/02/2023 7:38 AM EDT The patients x-ray is most consistent with constipation. Recomendations: Miralax 17 gm twice daily for 1 week then decrease to 1 time daily therafter Clinic f/u with Ms. Mathur. documented in this encounter Plan of Treatment Upcoming Encounters Date Type Department Care Team (Late st Contact Info) Description 11/06/2023 1:00 PM EDT Office Visit Gastroenterology, [facility] [address] [place] [address] Comfort Yu CRNP [address] [place] [address] Health Maintenance Due Date Last Done Comments Lipid Panel 1950 Pneumococcal Vaccine: 65+ Years (1 of 2 - PCV) 1954 Depression Screening 1960 Hepatitis C Screening 1966 DTaP,Tdap,and Td Vaccines (1 - Tdap) 10/10/1967 Zoster Vaccines (1 of 2) 10/10/1967 Cologuard 1993 Colonoscopy 1993 Colorectal Cancer Screening 1993 Fecal Occult Blood Test 1993 Sigmoidoscopy 1993 COVID-19 Vaccine (4 - 2022-2 4 season) 2022 02/03/2021, 06/10/2020, 05/13/2020 Influenza Vaccine (FLU shot) (Season Ended) 2023 GARDASIL-HPV IMMUNIZATION SERIES Aged Out No longer eligible b ased on patient's age to complete this topic Hepatitis B Aged Out No longer eligi ble based on patient's age to complete this topic MENINGOCOCCAL (MENACTRA/MENVEO) Aged Out No longer eligible b ased on patient's age to complete this topic documented as of this encounter Medical Devices Not on filedocumented as of this encounter Care Teams Supervisor/Port Director Relationship Specialty Start Date End Date Todd Spivey MD [address] [address] PCP - General Family Medicine 02/19/22 documented as of this encounter
--- OUTSIDE RECORDS SUMMARY | 2023-09-06 20:22 | External Medical Summary | Summary of Care ---
Author Name Unknown Organization [facility] Address [address] [address] Phone [phone] Care Team Providers Care Director For [employer] Name Role Phone Todd Spivey MD Primary Care Provider [phone] Reason for Visit * Reason Onset Date Comments Test Results Imaging Study 09/02/2023 Encounter Details Date Type Department Care Team (Late st Contact Info) Description 09/02/2023 Telephone Gastroenterology, [facility] [address] [place] [address] Agnieszka Bonner, [address] [place] [phone] Test Results Imaging Study Allergies Active Allergy Reactions Criticality Noted Date Comments Amoxicillin-Pot Clavulanate Diarrhea 03/12/20 23 Allergy to combo drug documented as of this encounter (statuses as of 09/03/2023) Medications Medication Sig Dispensed Refills Start Date [...] as of this encounter (statuses as of 09/03/2023) Active Problems No known active problems documented as of this encounter (statuses as of 09/03/2023) Social History Tobacco Use Types Packs/Day Years Used Date Smoking Tobacco: Never Smokeless Tobacco: Never Sex and Gender Information Value Date Recorded Sex Assigned at Not on file Gender Identity Not on file Sexual Orientation Not on file Job Start Date Occupation Industry Not on file Not on file Not on file documented as of this encounter Miscellaneous Notes * Telephone Encounter - Raiza Lyn RN - 09/03/2023 9:18 AM EDT Called pt sister, ISABEL. States Olga called her yesterday with recommendations. ED gave pt fluids, zofran and pain med, * Telephone Encounter - Rosemarie Hodge OSA - 09/02/2023 10:27 AM EDT Patients sibling (Isabel) calling on patients behalf, would like to speak to a nurse. She stated " patient in pain, and had went to ED this morning to [facility] to be seen. Please contact when available. Thank you * Telephone Encounter - Agnieszka Bonner DO [...] 11/06/2023 1:00 PM EDT Office Visit Gastroenterology, [facility] [address] [place] [address] Comfort Yu CRNP [address] [place] [address] Health Maintenance Due Date Last Done Comments [...] filedocumented as of this encounter Care Teams Director For [employer] Relationship Specialty Start Date End Date Todd Spivey MD [address] [address] PCP - General Family Medicine 02/19/22 documented as of this encounter
--- OUTSIDE RECORDS SUMMARY | 2023-09-06 20:22 | External Medical Summary | Summary of Care ---
Author Name Unknown Organization [facility] Address [address] [place] [address] Phone [phone] Care Team Providers Care House Worker General Name Role Phone Todd Spivey MD Primary Care Provider [phone] Reason for Visit * Reason Onset Date Comments Advice 08/09/2023 Encounter Details Date Type Department Care Team (Late st Contact Info) Description 08/09/2023 Telephone Gastroenterology, [facility] [address] [facility] [place] [address] Services, Scheduling [address] [place] [address] Advice Allergies Active Allergy Reactions Criticality Noted Date [...] Tablet by mouth at bedtime. 02/04/2022 Active documented as of this encounter (statuses [...] encounter Miscellaneous Notes * Telephone Encounter - Samantha Kraft OSA - 09/02/2023 9:04 AM EDT Appt 11/05 * Telephone Encounter - Codie Dumas OSA - 08/29/2023 4:44 PM EDT Pt.'s sister Candelaria has called in did try to schedule appointment with any PA or provider non availabledecember please advise. * Telephone Encounter - Hayley Mullen RN - 08/29/2023 4:21 PM EDT Patient's sister notified. Verbalizes understanding. * Addendum Note - Laura Newell DO - 08/29/2023 4:18 PM EDTAddended by: LAURA NEWELL on: 08/29/2023 04:18 PM Modules accepted: Orders * Telephone Encounter - Laura Newell DO - 08/29/2023 4:17 PM EDT I would suggest the patient have some basic labs and an abdominal x-ray. Can we make an appointmentwith 1 of our SANDBLAST OPERATOR or PA providers next week to reassess his symptoms. * Telephone Encounter - Hayley Mullen RN - 08/29/2023 3:45 PM EDT Spoke to sister. She and patient do not feel that he needs to be seen urgently in the ER. States his nausea and abdominal pain are the same as what they had been prior to the ERCP. They started againon Friday but they are the same symptoms he had previously. Explained multiple times that you advised him to go to the ER. They are asking if he can be prescribed something for nausea. * Telephone Encounter - Laura Newell DO - 08/29/2023 3:31 PM EDT Given the persistence of the patient's symptoms that may be best served by seeing the emergency room for more urgent evaluation. * Telephone Encounter - Fátima To OSA - 08/29/2023 2:25 PM EDT Candelaria calling in following up on previous message. * Telephone Encounter - Azeem Mccormick LPN - 08/29/2023 11:03 AM EDT The pt's sister stated he is having been having "attacks" of severe ABD pain, the pt is not able toeat or drink, and nausea for approx 1 week. He told his sister that sublingual Zofran did provide him some temporary relief when he was in the ED. The pt's sister denies any issues with his BM's. * Telephone Encounter - Olga Mcneil RN - 08/29/2023 10:55 AM EDT Attempted to contact pt. No answer. Left message requesting return call. * Telephone Encounter - Mehnaz Benson OSA - 08/28/2023 5:11 PM EDT Patient's sister called in [facility], stating patient had procedure with Dr. Newell last week. Would like to speak with Dr. Newell or nurse regarding the patient is still very sick and woke up this morning with what felt like "another attack" of pain. Would like to update Dr. Newell on how the patient is doing. Patient is scheduled for first available Gastro appointment in [facility] and on [facility] but nothing available until November. Please call her back at [phone]. Thank you. * Telephone Encounter - Samantha Kraft OSA - 08/12/2023 1:13 PM EDT Eus/ercp added to [facility] 08/20 * Telephone Encounter - Saritha Olivera RN - 08/12/2023 11:04 AM EDT Is there no availability at [facility] next week? It looks like there is limited availability in the OR this day at [facility] to cover for inpatients. If there is not availability at [facility] next week than I am fine to put it on here given the patients symptoms but this will leave limitations for inpatients. * Telephone Encounter - Samantha Kraft OSA - 08/12/2023 8:43 AM EDT Vivi, Can I add this to at [facility] * Telephone Encounter - Laura Newell DO - 08/12/2023 8:03 AM EDT Another option would be to add at [facility] this . Egd/ eus with possible ercp (60 minutes) * Telephone Encounter - Arlette Baker OSA - 08/11/2023 2:51 PM EDT I offered pt September 30 ( next available) and pt's sister stated that it needs to be done next week.. how urgent is this procedure? * Telephone Encounter - Laura Newell DO - 08/11/2023 2:16 PM EDT Given the recurrent symptoms we can proceed with repeat EUS and possible ERCP The patient has presented a number of times in past with similar symptoms that have resulted from Choledocholithiasis * Telephone Encounter - Edwina Stovall OSA - 08/11/2023 11:48 AM EDT Patient's sister was calling in again to speak to Dr. Newell about her brother who was just in the ER at [facility] for vomiting and abdominal pain. * Telephone Encounter - Olga Lam OSA - 08/09/2023 12:37 PM EDT Pt is having nausea, vomiting and pain around naval area. He has also had a decrease in appetite. His sister would like to speak to you for advice please. documented in this encounter Plan of Treatment Upcoming Encounters Date Type Department Care Team (Late st Contact Info) Description 11/06/2023 1:00 PM EDT Office Visit Gastroenterology, [facility] [address] [place] [address] Comfort Yu CRNP [address] [place] [phone] Scheduled Orders Name Type Priority Associated Diagnoses Orde r Schedule ERCP Gastro Upper Routine Abdominal pain, epigastric Ordered: 08/11/2023 Health Maintenance Due Date Last Done Comments [...] Not on filedocumented as of this encounter Procedures Procedure Name Priority Date/Time Associated Diagnosis Comments XR ABDOMEN 1 VIEW Routine 08/30/2023 2:1 8 PM EDT Abdominal pain, epigastric documented in this encounter Results * XR ABDOMEN 1 VIEW (08/30/2023 2:18 PM EDT) Anatomical Region Laterality Modality Abdomen, Pelvis Digital Radiogra phy 08/30/2023 2:54 PM EDT Impressions 08/30/2023 2:52 PM EDT IMPRESSION Moderate colonic fecal material. Narrative 08/30/2023 2:52 PM EDT EXAM XR ABDOMEN 1 VIEW - 08/30/2023 2:18 pm HISTORY Evaluation for constipation TECHNIQUE Single AP supine view of the abdomen was obtained. COMPARISON None. FINDINGS The bowel gas pattern is nonobstructive. No dilated loops of bowel are seen. Moderate fecal material in the colon. There are no abnormal calcifications. Cholecystectomy clips. Degenerative changes in the spine. Fixation hardware in the lumbosacral spine. Bilateral hip arthroplasty. Procedure Note Jordan Hernández MD - 08/30/2023 EXAM XR ABDOMEN 1 VIEW - 08/30/2023 2:18 pm HISTORY Evaluation for constipation TECHNIQUE Single AP supine view of the abdomen was obtained. COMPARISON None. FINDINGS The bowel gas pattern is nonobstructive. No dilated loops of bowel areseen. Moderate fecal material in the colon. There are no abnormal calcifications. Cholecystectomy clips. Degenerative changes in the spine. Fixation hardware in the lumbosacralspine. Bilateral hip arthroplasty. IMPRESSION IMPRESSION Moderate colonic fecal material. Laura Newell DO RADIOLOGY (RAD GENER AL) * US ENDOSCOPIC (08/21/2023 2:01 PM EDT) Narrative Scheduling, Silent - 08/21/2023 2:01 PM EDT This is an imaging study not interpreted or resulted by a [facility] or [facility] contracted radiologist. Laura Newell DO RAD ULTRASOUND documented in this encounter Visit Diagnoses Diagnosis Abdominal pain, epigastric- Primary Abdominal pain, epigastric documented in this encounter Care Teams House Worker General Relationship Specialty Start Date End Date Todd Spivey MD [address] [id number] PCP - General Family Medicine 02/19/22 documented as of this encounter
--- OUTSIDE RECORDS SUMMARY | 2023-09-06 20:22 | External Medical Summary | Summary of Care ---
Author Name Unknown Organization [facility] Address [address] [address] Phone [phone] Care Team Providers Care Home Care Rn Name Role Phone Todd Spivey MD Primary Care Provider [phone] Reason for Visit * Reason Onset Date Comments Test Results Imaging Study 09/02/2023 Encounter Details Date Type Department Care Team (Late st Contact Info) Description 09/02/2023 Telephone Gastroenterology, [facility] [address] [place] [address] Agnieszka Bonner, [address] [place] [phone] Test Results Imaging Study Allergies Active Allergy [...] encounter Miscellaneous Notes * Telephone Encounter - Rosemarie Hodge OSA - 09/02/2023 10:27 AM EDT Patients sibling (Candelaria) calling on patients behalf, would like to speak to a nurse. She stated " patient in pain, and had went to ED this morning to [facility] to be seen. Please contact when available. [...] 11/06/2023 1:00 PM EDT Office Visit Gastroenterology, [facility] [address] [place] [address] Comfort Yu CRNP [address] [place] [address] Health Maintenance Due Date Last Done Comments [...] filedocumented as of this encounter Care Teams Home Care Rn Relationship Specialty Start Date End Date Todd Spivey MD [address] [address] PCP - General Family Medicine 02/19/22 documented as of this encounter
[2023-09-06] MEDS: ATORVASTATIN 10 MG TAB PO SCH (20:39)
[2023-09-06] MEDS: TAMSULOSIN HCL 0.4 MG CAP PO SCH (20:39)
[2023-09-06] MEDS: FAMOTIDINE 40 MG TABLET PO SCH (20:39)
[2023-09-06] MEDS: BIMATOPROST 0.01% OP SOLN 2.5 ML BTL OP SCH (20:40)
[2023-09-06] MEDS: ZOLPIDEM TARTRATE 5 MG TAB PO PRN (23:08)
--- NOTE | 2023-09-07 05:04 | Communication Note ---
Date of Service: September 07, 2023 Patient with NSVT episode in a.m. as per RN. Asymptomatic as per RN. SBP 100s, pulse rate 75. AP NSVT Supplement serum potassium and magnesium (goal serum levels of at least 4 and 2, respectively) Resume home beta-makayla once BP stable.
[2023-09-07] MEDS ORDERED: NSS + 20MEQ KCL 20 MEQ/1,000 ML BAG IV ONE (05:15)
[2023-09-07] MEDS: MAGNESIUM SULFATE / D5W 1 GM/100 ML BAG IV ONE (05:47)
[2023-09-07] MEDS: POTASSIUM CHLORIDE CRTAB 20 MEQ TABCR PO STA (05:51)
[2023-09-07 06:52] LABS: BUN Creatinine Ratio 12.9 (10-20); Calcium 7.7 mg/dl (8.6-10.3); Creatinine Clr Calc Pharmacy 70.3 ml/min; Est GFR (African American) 107.8 ml/min; Magnesium 1.7 mg/dl (1.7-2.4); Potassium 3.5 mmol/L (3.5-5.1)
[2023-09-07 07:03] LABS: Basophils # (auto) 0.02 K/uL (0.00-0.20); Basophils % (auto) 0.3 %; Eosinophils # (auto) 0.02 K/uL (0.00-0.50); Eosinophils % (auto) 0.3 %; Hematocrit (blood only) 37.7 % (42.0-52.0); Hemoglobin 13.5 g/dl (14.0-18.0); Immature Granulocytes # (auto) 0.03 K/uL (0.01-0.20); Immature Granulocytes % (auto) 0.4 %; Lymphocytes % (auto) 5.5 %; Mean Corpuscular Hemoglobin 33.9 pg (25.0-34.0); Mean Corpuscular Hgb Conc 35.8 g/dL (32.0-36.0); Mean Corpuscular Volume 94.7 fL (80.0-100.0); Mean Platelet Volume 10.6 fL (9.4-12.4); Monocytes # (auto) 0.32 K/uL (0.11-0.59); Monocytes % (auto) 4.4 %; Neutrophils # (auto) 6.47 K/uL (1.40-6.50); Neutrophils % (auto) 89.1 %; Platelet Count 89 K/uL (130-400); Platelet Estimate Decreased (Normal); RDW Standard Deviation 45.1 fL (36.4-46.3); Red Blood Count 3.98 M/uL (4.70-6.10); Toxic Vacuolation 1+; White Blood Count 7.26 K/ul (4.8-10.8)
--- NOTE | 2023-09-07 09:15 | Cardiology Consultation ---
Date of Consultation September 07, 2023 Assessment & Plan (1) Syncope: (2) SVT (supraventricular tachycardia): (3) PVCs (premature ventricular contractions): (4) CAD (coronary artery disease): Plan Impression: 72-year-old male with past medical history of coronary artery disease and ischemic cardiomyopathy presented to [facility] emergency department after an episode of syncope in the setting of diarrhea and electrolyte disturbances. Telemetry revealing sinus rhythm with short bursts of SVT versus A. tach as well as PVCs. Beta-makayla has been on hold due to low blood pressures. Plan: SVT/PVCs: No sustained arrhythmias noted on telemetry. Short bursts of PVCs and SVT versus A. tach. Patient asymptomatic. Likely in the setting of holding of beta-makayla. -Restart beta-makayla, patient normally maintained on metoprolol tartrate 25 mg twice daily, will transition to metoprolol succinate 25 mg daily. Monitor on telemetry while inpatient -Recommend electrolyte management, potassium goal of 4.0 and mag goal of 2.0. Replace as needed -Consider outpatient ambulatory monitor at discharge. Coronary artery disease/ischemic heart disease: Patient with a history of PCI x 6 in the past. Currently stable without angina. -Continue dual antiplatelet therapy with aspirin and Plavix as ordered. -Continue statin therapy -LVEF has recovered however given the history of valvular heart disease and prior history of ischemic cardiomyopathy caution the use of IV fluids to prevent over hydration. Will defer GI issues to hospitalist team and GI per service. Of note patient follows with a cardiology team in [place]. He will need to follow-up with this service at discharge. Case discussed with Dr. Forman. Further recommendations pending his assessment. I spent a total of 60 minutes on the date of service in preparation, delivery, and documentation of the care provided to the patient excluding any time spent in the performance of separately billed services. ASHLEIGH Li Department of Cardiology, [facility] This chart was completed in part utilizing Speech Voice Recognition Software. Grammatical errors, random word insertions, pronoun errors, and incomplete sentences are an occasional consequence of this system due to software limitations, ambient noise, and hardware issues. Any formal questions or concerns about the content, text, or information contained within the body of this dictation should be directly addressed to the provider for clarification. Supervising Physician Co-Signing Physician Notes I have personally performed a history and physical examination on the patient. I have reviewed the advance practitioner's documentation, and I agree with, and take responsibility for the plan of care. 72-year-old male admitted with syncopal episode in the setting of diarrhea, dehydration, and electrolyte derangement. Cardiology consultation requested due to 4 beat run of nonsustained ventricular tachycardia and evidence of paroxysmal supraventricular tachycardia on telemetry. No associated symptoms. Beta- makayla on hold since admission due to hypotension. Echocardiographic findings stable compared to prior evaluations performed in [place]. No evidence of acute coronary syndrome. Recommend restart beta-makayla therapy. Supplement electrolytes as indicated. Continue dual antiplatelet therapy and statin. I spent a total of 30 minutes on the date of service in preparation, delivery, and documentation of the care provided to this patient, excluding any time spent in the performance of separately billed services. History of Present Illness Reason for Consultation: Nonsustained [place] Requesting Physician: Nicolas sherwood Attending Physician: Aroldo Ortiz MD History of Present Illness At the end of August patient was evaluated by his PCP due to abdominal discomfort. Was evaluated by his GI provider who noted moderate fecal retention. MiraLAX was prescribed to the patient. Medication prompted loose watery stools however he continued to take this medication. Patient became weak-went to use the restroom and while on the toilet he had a syncopal episode. [place] to be dehydrated. Blood pressures were hypotensive. Started on IV fluids. Echocardiogram showed a normal LVEF of 55 to 60%. Moderate concentric LVH. There is a small size basal inferior and posterior wall motion abnormality, mild AI, trace MR, mild TR. No pulmonary hypertension. Carotid duplex without hemodynamicly significant stenosis Cardiology consulted due to episodes of PVCs and SVT versus atrial tach on telemetry. Patient's metoprolol has been on hold due to hypotension. Normally maintained on metoprolol tartrate 25 mg twice daily as an outpatient. Upon entrance to the room patient resting comfortably in bed. Denies any acute cardiovascular complaints. Denies any chest pain or shortness of breath. No palpitations. No lightheadedness or dizziness. No recurrent syncope. Denies orthopnea or PND. No lower extremity edema. Past medical history: Coronary artery disease, history of PCI x 6 (S/p ramus and LCx stent (2005), S/p stent to LAD and RCA (2009), S/p stent to Ramus and LCx (2016)) Ischemic cardiomyopathy with chronic systolic heart failure, LVEF 40% per echo 2021; resolved LVEF per echo 09/2023 [facility] Hypertension hyperlipidemia Valvular heart disease, moderate aortic regurgitation, mitral regurgitation, and tricuspid regurgitation per echo 2021 Allergies Allergy/AdvReac Type Severity Reaction Status Date / Time amoxicillin [From Augmentin] Allergy Intermediate Hives Verified 09/06/23 01:03 clavulanic acid Allergy Intermediate Hives Verified 09/06/23 01:03 [From Augmentin] indomethacin AdvReac Unknown pt not Verified 09/06/23 01:03 sure / doesn't sound familiar oxycodone AdvReac Unknown ? details Verified 09/06/23 01:03 unclear -HEAD FELT [id number] DOESN'T LIKE Home Medications Medication Instructions Recorded Confirmed Type ascorbic acid (vitamin C) 500 mg 500 mg PO QAM 02/21/22 09/06/23 History tablet aspirin 81 mg tablet,delayed 81 mg PO QAM 02/21/22 09/06/23 History release atorvastatin 10 mg tablet 10 mg PO QPM 02/21/22 09/06/23 History coenzyme Q10 100 mg capsule 200 mg PO QPM 02/21/22 09/06/23 History (CoQ-10) cyanocobalamin (vitamin B-12) 500 500 mcg PO QAM 02/21/22 09/06/23 History mcg tablet (Vitamin B-12) folic acid 1 mg tablet 2 mg PO QAM 02/21/22 09/06/23 History hydroxychloroquine 200 mg tablet 400 mg PO QAM 02/21/22 09/06/23 History (Plaquenil) omeprazole 40 mg capsule,delayed 40 mg PO BID 02/21/22 09/06/23 History release bimatoprost 0.01 % eye drops 1 drp OPB QPM 08/10/23 09/06/23 History (Lumigan) cetirizine 10 mg tablet 10 mg PO DAILY 08/10/23 09/06/23 History dorzolamide 22.3 mg-timolol 6.8 1 drp OPL TID 08/10/23 09/06/23 History mg/mL eye drops fluticasone propionate 50 2 spray intranasal DAILY PRN 08/10/23 09/06/23 History mcg/actuation nasal Congestion spray,suspension gabapentin 300 mg capsule 300 mg PO BID 08/10/23 09/06/23 History zolpidem 10 mg tablet 10 mg PO HS PRN Sleep 08/10/23 09/06/23 History Plavix 75 mg PO DAILY 09/06/23 09/06/23 History famotidine 40 mg tablet 40 mg PO HS 09/06/23 09/06/23 History metoprolol tartrate 50 mg tablet 25 mg PO BID 09/06/23 09/06/23 History ondansetron 8 mg disintegrating 8 mg translingual Q6H PRN 09/06/23 09/06/23 History tablet NAUSEA/VOMITING polyethylene glycol 3350 17 17 g PO BID 09/06/23 09/06/23 History gram/dose oral powder (Miralax) turmeric root extract 1,053 mg 1,053 mg PO DAILY 09/06/23 09/06/23 History tablet Patient History Medical History Family history of reaction to anesthesia Sister slow to wake- groggy; pt denies any personal issues with anesthesia [place] (hard of hearing) Pancreatic cyst GERD (gastroesophageal reflux disease) Hiatal hernia Mitral valve prolapse Myocardial infarction 2006 CAD (coronary artery disease) S/p ramus and LCx stent (2005) S/p stent to LAD and RCA (2009) S/p stent to Ramus and LCx (2016) Hyperlipidemia Rheumatoid arthritis On Plaquenil HTN (hypertension) Surgical History Hx of endoscopic retrograde cholangiopancreatography 02/22/22 [place] History of colonoscopy History of bilateral hip replacements History of right shoulder replacement History of left shoulder replacement History of total right knee replacement History of back surgery 2003 History of endoscopy with ultrasound feb 21 2022 ([facility]) - stone in common bile duct & gallbladder is full of stones - had subsequent ERCP 02/22/22 History of cardiac cath Hx mi...stent x1 2006 stent x 1 2006, stent x 1 2009 History of lumbar fusion 2014 Family History Other No family history of adverse response to anesthesia Social History Smoking Status: Former smoker Second Hand Exposure: No; Hx Alcohol Use: Yes (OCCASSIONAL) Hx Substance Use: No Preferred Language: Lithuanian Communication Ability: Effective Supervisor Type Disk Quality Control Required: No Beliefs That Will Affect Care: None Current Living Situation: Alone Feels Safe at Home: Yes Assistive Devices: Glasses and Hearing Aid - Right Review of Systems Review of Systems: All systems reviewed & are unremarkable except as noted in HPI & below Physical Exam Constitutional: WD/WN, vitals as above no acute distress Eyes: PERRL, conjunctivae normal, anicteric sclerae ENMT: external ear and nose normal, oropharynx normal Ears: + hearing impairment Neck: normal visual inspection and trachea midline Respiratory: normal respiratory effort, lungs clear to auscultation + cough Auscultation: + diminished lung sounds; no rales, no rhonchi and no wheezes Cardiovascular: RRR, no murmur, no edema Heart Sounds: normal S1, normal S2 and + murmur Vessels: no JVD Extremities: no edema Neurologic: PERRL, EOMI, accommodation nl, no face palsy, no dysarthria Psychiatric: A+Ox3, euthymic affect Results & Data Vital Signs (Past 12 Hours) Vital Signs Temp Pulse Pulse Resp BP Pulse Ox O2 Del Method 09/07/23 08:00 36.8 C 77 16 133/71 95 Room Air 09/07/23 07:29 Room Air 09/07/23 06:59 82 09/07/23 05:05 75 109/68 09/07/23 02:48 37 C 72 16 128/70 99 Room Air 09/06/23 23:26 37 C 83 18 114/69 96 Room Air 09/06/23 21:58 74 Laboratory Results CBC 09/07/23 Range/Units 05:19 WBC 7.26 D (4.8-10.8) K/ul RBC 3.98 L (4.70-6.10) M/uL Hgb 13.5 L (14.0-18.0) g/dl Hct 37.7 L (42.0-52.0) % Plt Count 89 L (130-400) K/uL Neut # (Auto) 6.47 (1.40-6.50) K/uL Lymph # (Auto) 0.40 L (1.20-3.40) K/uL [place] # (Auto) 0.32 (0.11-0.59) K/uL Eos # (Auto) 0.02 (0.00-0.50) K/uL Baso # (Auto) 0.02 (0.00-0.20) K/uL Comprehensive Metabolic Panel 09/07/23 Range/Units 05:19 Sodium 131 L (136-145) mmol/L Potassium 3.5 (3.5-5.1) mmol/L Chloride 103 (98-107) mmol/L Carbon Dioxide 25 (21-32) mmol/L BUN 9 (6-23) mg/dl Creatinine 0.70 (0.6-1.4) mg/dl Glucose 96 (70-99(Fasting)) mg/dl Calcium 7.7 L (8.6-10.3) mg/dl Intake and Output 09/06/23 09/07/23 09/07/23 22:59 06:59 14:59 Intake Total 821.25 / 2681.25 1760 / 2681.25 100 / 100 Balance 821.25 / 2681.25 1760 / 2681.25 100 / 100 Intake: IV 821.25 / 1821.25 1000 / 1821.25 100 / 100 Magnesium Sulfate / D5w 1 gm In 100 / 100 100 ml @ 50 mls/hr IV ONE ONE Rx#:[id number] Nss + 20Meq KCl 20 meq In 1,000 821.25 / 1821.25 1000 / 1821.25 ml @ 75 mls/hr IV .[id number] ANATOLIY Rx#:[id number] Oral 760 / 860 Other: # Unmeasured Voids 2 Weight 66.1 kg Weight Measurement Method Built in [facility] (1) Syncope Syncope type: unspecified Qualified Code(s): R55 - Syncope and collapse (4) CAD (coronary artery disease) Associated angina: without angina Coronary Disease-Associated Artery/Lesion type: [place] artery [place] vs. transplanted heart: [place] heart Qualified Code(s): I25.10 - Atherosclerotic heart disease of [place] coronary artery without angina pectoris
--- NOTE | 2023-09-07 09:23 | Ultrasound Report ---
ULTRASOUND OF THE CAROTID ARTERIES CLINICAL HISTORY: Syncope TECHNIQUE: Real-time, grayscale, and color Doppler sonography of the bilateral carotid arteries is pe rformed. Images are reviewed in the transverse and longitudinal planes. COMPARISON: None available at the time of this dictation. FINDINGS: The carotid arteries are patent bilaterally and demonstrate antegrade flow. There is mild atheroscler otic plaque on the right and moderate to severe atherosclerotic plaque on the left. Normal doppler ar terial waveforms are seen throughout. Velocity measurements are listed below. Common carotid peak systolic velocity (cm/sec): RIGHT: 67 LEFT: 79 ICA peak systolic velocity (cm/sec): RIGHT: 57 LEFT: 83 ICA/CC peak systolic ratio: RIGHT: 0.9 LEFT: 1.1 Antegrade flow was shown in the vertebral arteries. The external carotid arteries are patent. IMPRESSION: 1. Atherosclerosis is seen without evidence of hemodynamically significant stenosis bilaterally. 2. Antegrade flow is shown in the vertebral arteries. Society of Radiologists in Ultrasound consensus guidelines: Normal: ICA PSV is <125 cm/sec and no plaque or intimal thickening is visible sonographically additional criteria include ICA/CCA PSV ratio <2.0 and ICA EDV <40 cm/sec <50% ICA stenosis: ICA PSV is <125 cm/sec and plaque or intimal thickening is visible sonographically additional criteria include ICA/CCA PSV ratio <2.0 and ICA EDV <40 cm/sec 50-69% ICA stenosis: ICA PSV is 125-230 cm/sec and plaque is visible sonographically additional criteria include ICA/CCA PSV ratio of 2.0-4.0 and ICA EDV of 40-100 cm/sec ?70% ICA stenosis but less than near occlusion: ICA PSV is >230 cm/sec and visible plaque and luminal narrowing are seen at dobbins-scale and color Dopp ler ultrasound (the higher the Doppler parameters lie above the threshold of 230 cm/sec, the greater the likelihood of severe disease) additional criteria include ICA/CCA PSV ratio >4 and ICA EDV >100 cm/sec ACT 112: Negative or not required by law. Electronically signed by: Pawan Rosenbaum M.D. 09/07/2023 9:22 AM
--- NOTE | 2023-09-07 10:15 | Gastroenterology Progress Note ---
Date of Service September 07, 2023 Assessment & Plan (1) Abdominal pain: Plan: I am still not clear of the etiology of the pain. Spent quite some time talking with sister about the travails of the last two years. This acute diarrhea process may well have been a self limited enteritis which will certainly confuse the picture. The only testing that has not been done is a colonoscopy but with an acute infectious process going on that could confuse the picture. If this is a self limited process causing this episode then he should continue to improve. His chronic problems seem tied to his biliary system which Dr. Bonner is addressing. Currently he is getting cardiac consult for NSVT that occurred last night. It may come to a colonoscopy during this hospitalization but will wait and see how he does as other issues are addressed. Admission and Anticipated Discharge Date Admission Date: September 06, 2023 Subjective Briefly as he is going to the bathroom he tells me he is a little better. KUB today shows a lot of air throughout his belly. Physical Exam Constitutional: WD/WN, vitals as above Results & Data Vital Signs (Past 12 Hours) Vital Signs Temp Pulse Pulse Resp BP Pulse Ox O2 Del Method 09/07/23 08:00 36.8 C 77 16 133/71 95 Room Air 09/07/23 07:29 Room Air 09/07/23 06:59 82 09/07/23 05:05 75 109/68 09/07/23 02:48 37 C 72 16 128/70 99 Room Air 09/06/23 23:26 37 C 83 18 114/69 96 Room Air (1) Abdominal pain Abdominal location: periumbilical Qualified Code(s): R10.33 - Periumbilical pain
--- NOTE | 2023-09-07 10:25 | XRay Report ---
XR KUB/Abdomen 1 view CLINICAL HISTORY: constipation TECHNIQUE: 1 view of the abdomen was obtained. Comparison: Comparison is made to abdomen radiograph 03/18/2022 FINDINGS: Posterior fixation hardware is seen in the bilateral hips and lumbar spine. Degenerative changes are seen in the visualized skeleton. The bowel gas pattern is nonobstructive. Small stool burden is seen. IMPRESSION: Nonobstructive bowel gas pattern. ACT 112: Negative or not required by law. Electronically signed by: Pawan Rosenbaum M.D. 09/07/2023 10:24 AM
[2023-09-07] MEDS: METOPROLOL SUCC 25MG EXT REL TAB PO SCH (10:58)
--- NOTE | 2023-09-07 16:04 | Hospitalist Progress Note ---
Date of Service September 07, 2023 Assessment & Plan (1) Syncope: Plan: Syncope Moderate cervicals spinal stenosis ? Related to spinal artery stenosis DD: Dehydration secondary to diarrhea Normal orthostatics Monitor on telemetry to rule out arrhythmias --CT Head:Mild age-related findings. Degenerative change and moderate spinal stenosis at C1-2. Consider nonemergent neurosurgical consultation and MRI cervical spine as indicated. No acute infarct, bleed, or acute intracranial abnormality. -ECHO: Left ventricle EF 55 to 60%. Mild concentric LVH. Small sized basal inferior and posterior wall abnormality with hypokinesis to akinesis of the segments. Mild mitral regurgitation. Mild aortic regurgitation. Mild tricuspid regurgitation. Findings do not suggest pulmonary hypertension. -Carotid Doppler:Atherosclerosis is seen without evidence of hemodynamically significant stenosis bilaterally. Antegrade flow is shown in the vertebral arteries studies Received IV fluids Await for Ortho input Possible enterocolitis Ongoing abdominal pain associated with constipation Likely overflow diarrhea h/o choledocholithiasis --CT ABD:Possible enterocolitis versus artifact from under distention, correlate clinically. No acute intra-abdominal or intrapelvic abnormality otherwise noted. -- BioFire negative --Patient recently had EGD, ERCP as per record --Trial of Bentyl for pain control --Advance diet as tolerated --GI on board -- Leukocytosis resolved Stool studies pending SVT PVCs Resume metoprolol Monitor and replace electrolytes as needed Appreciate cardiology input Urinary retention due to BPH Bladder scan as needed Added Flomax Appreciate cardiology input Replace Banda catheter if urinary retention worsens Will need to follow urology on discharge Chronic hyponatremia Sodium 131 today Monitor Thrombocytopenia No bleeding issues currently Hold Lovenox for now Monitor platelet Chronic systolic heart failure CAD S/P stent PVD Hyperlipidemia Continue aspirin, Plavix, statin GERD on PPI and famotidine Rheumatoid arthritis on hydroxychloroquine Past tobacco abuse as per record DVT Px: Lovenox SQ--held Re: Thrombocytopenia Code Status Full code Admission and Anticipated Discharge Date Admission Date: September 06, 2023 Subjective Patient is seen and examined at bedside less abdominal pain today Had loose BMs today Discussed with patient's sister at bedside Noted drop in platelets Had NSVT's overnight Denies any chest pain, dyspnea Tolerating current diet Review of Systems Review of Systems: All systems reviewed & are unremarkable except as noted in Subjective Physical Exam Physical Exam: Physical Exam: Vitals signs as noted above General Appearance:Moderately built and nourished, no apparent distress Head: normocephalic, Atraumatic Eyes: normal inspection, EOMI Neck: supple, Trachea midline Respiratory/Chest: Normal breath sounds, CTA, No accessory muscle use Cardiovascular: S1, S2, + murmur Abdomen/GI:Soft, mild tender, Bowel sounds present Extremities/Musculoskeletal:normal inspection, no edema Neurologic/Psych:AAOX3, grossly no focal neurological deficits Skin: normal color, warm Results & Data Results & Data Vital Signs (Past 12 Hours) Vital Signs Temp Pulse Pulse Resp BP Pulse Ox O2 Del Method 09/07/23 15:57 36.8 C 84 18 150/82 H 96 Room Air 09/07/23 14:53 78 09/07/23 11:44 37.1 C 73 18 112/71 99 Room Air 09/07/23 10:57 82 111/75 09/07/23 08:00 36.8 C 77 16 133/71 95 Room Air 09/07/23 07:29 Room Air 09/07/23 06:59 82 09/07/23 05:05 75 109/68 Laboratory Results Short CBC 09/07/23 Range/Units 05:19 WBC 7.26 D (4.8-10.8) K/ul Hgb 13.5 L (14.0-18.0) g/dl Hct 37.7 L (42.0-52.0) % Plt Count 89 L (130-400) K/uL BMP 09/07/23 05:19 Sodium 131 L Potassium 3.5 Chloride 103 Carbon Dioxide 25 BUN 9 Creatinine 0.70 Glucose 96 Calcium 7.7 L (1) Syncope Syncope type: unspecified Qualified Code(s): R55 - Syncope and collapse
[2023-09-07] MEDS: ACETAMINOPHEN 325 MG TAB PO PRN (23:21)
--- NOTE | 2023-09-08 06:20 | Electrocardiogram Report ---
Test Reason : Blood Pressure : / mmHG Vent. Rate : 081 BPM Atrial Rate : 081 BPM P-R Int : 156 ms QRS Dur : 078 ms QT Int : 364 ms P-R-T Axes : 055 006 020 degrees QTc Int : 422 ms Normal sinus rhythm Nonspecific T wave abnormality Abnormal ECG When compared with ECG of 01-SEP-2023 14:21, Premature ventricular complexes are no longer Present Premature atrial complexes are no longer Present QT has shortened Confirmed by Piter Fish ([id number]) on 09/08/2023 6:20:08 AM Referred By: REFERRED SELF Confirmed By:Piter Fish
[2023-09-08 06:34] LABS: BUN Creatinine Ratio 9.4 (10-20); Calcium 7.9 mg/dl (8.6-10.3); Creatinine Clr Calc Pharmacy 76.8 ml/min; Est GFR (African American) 111.8 ml/min; Est GFR (Non-African American) 96.5 ml/min; Magnesium 1.9 mg/dl (1.7-2.4); Potassium 3.4 mmol/L (3.5-5.1)
[2023-09-08 06:58] LABS: Hematocrit (blood only) 35.8 % (42.0-52.0); Mean Corpuscular Hemoglobin 33.9 pg (25.0-34.0); Mean Corpuscular Hgb Conc 36.3 g/dL (32.0-36.0); Mean Corpuscular Volume 93.5 fL (80.0-100.0); Mean Platelet Volume 10.7 fL (9.4-12.4); Platelet Count 95 K/uL (130-400); RDW Coefficient of Variation 12.9 % (11.5-14.5); RDW Standard Deviation 43.8 fL (36.4-46.3); Red Blood Count 3.83 M/uL (4.70-6.10); White Blood Count 4.87 K/ul (4.8-10.8)
[2023-09-08 07:03] LABS: Basophils # (auto) 0.03 K/uL (0.00-0.20); Basophils % (auto) 0.6 %; Eosinophils % (auto) 6.2 %; Immature Granulocytes # (auto) 0.02 K/uL (0.01-0.20); Immature Granulocytes % (auto) 0.4 %; Lymphocytes # (auto) 0.86 K/uL (1.20-3.40); Lymphocytes % (auto) 17.7 %; Monocytes # (auto) 0.59 K/uL (0.11-0.59); Monocytes % (auto) 12.1 %; Neutrophils # (auto) 3.07 K/uL (1.40-6.50); Platelet Estimate Decreased (Normal)
[2023-09-08] MEDS: POTASSIUM CHLORIDE CRTAB 20 MEQ TABCR PO ONE (10:17)
--- NOTE | 2023-09-08 15:02 | XRay Report ---
XR skull for MRI HISTORY: 72 years-old Male for MRI screening for MRI COMPARISON: Head CT 09/06/2023 TECHNIQUE: 2 views of the skull FINDINGS: No acute fracture or opaque foreign body identified. Dental amalgam hardware. Mastoid air cells and p aranasal sinuses are generally clear. IMPRESSION: No opaque foreign body identified. ACT 112: Negative or not required by law. The above report was generated using voice recognition software. It may contain grammatical, syntax o r spelling errors. Electronically signed by: Florencio Nuñez M.D. 09/08/2023 3:01 PM
--- NOTE | 2023-09-08 17:09 | Magnetic Resonance Report ---
MR cervical spine wo con HISTORY: 72 years-old Male eval C1-C2 stenosis; syncope chronic neck pain COMPARISON: None. TECHNIQUE: Multiplanar multisequence MRI of the cervical spine was obtained without IV contrast. FINDINGS: The imaged posterior fossa structures appear unremarkable. There is normal signal within the brainste m, cervical and imaged upper thoracic spinal cord. No acute fracture, subluxation, endplate erosion o r significant bone marrow edema. Unremarkable soft tissues. Study is motion degraded. C1-C2: There is a small degenerative pannus posterior to the dens. There is moderate narrowing at the craniocervical junction with AP dimension of the thecal sac measuring approximately 7 mm. There is m ild deformity upon the dorsal aspect of the upper cervical spinal cord. C2-C3: Mild intervertebral disc space narrowing. Small posterior disc osteophyte complex with modera te to severe facet arthrosis. Central canal is patent. Mild left with mild to moderate right neural f oraminal narrowing. C3-C4: Mild intervertebral disc space narrowing with small posterior disc osteophyte complex. Moderat e to severe facet arthrosis. Central canal is patent. Moderate to severe bilateral foraminal stenosis . C4-C5: Moderate intervertebral disc space narrowing with small posterior disc osteophyte complex. Mod erate to severe facet arthrosis. Mild central canal stenosis with AP dimension of the thecal sac connor uring 7 mm. Severe right with moderate left foraminal narrowing. C5-C6: Severe intervertebral disc space narrowing with circumferential disc osteophyte complex and mo derate to advanced facet arthrosis. Mild central canal stenosis with AP dimension of the thecal sac m easuring 7 mm. Severe bilateral foraminal narrowing. C6-C7: Moderate intervertebral disc space narrowing with left paracentral/left lateral recess small d isc osteophyte complex. Moderate facet arthrosis. The central canal is patent. Severe left with mild to moderate right foraminal narrowing. C7-T1: Moderate intervertebral disc space narrowing with small posterior disc osteophyte complex and mild facet arthrosis. The central canal is patent. Mild right with mild to moderate left foraminal na rrowing. IMPRESSION: 1. Moderate narrowing at the craniocervical junction. 2. Discogenic degeneration with uncovertebral hypertrophy and facet arthrosis as above resulting in m ultilevel neural foraminal stenosis. 3. Mild central canal stenosis at C5-C6 and C6-C7. 4. Normal signal within the imaged brainstem and cervical spinal cord. ACT 112: Negative or not required by law. The above report was generated using voice recognition software. It may contain grammatical, syntax o r spelling errors. Dictated: 09/08/2023 4:30 PM Transcribed: 09/08/2023 4:51 PM Michelle [id number] MICHAEL_Homero [id number] Electronically signed by: Florencio Nuñez M.D. 09/08/2023 5:07 PM
--- NOTE | 2023-09-08 17:43 | Hospitalist Progress Note ---
Date of Service September 08, 2023 Assessment & Plan (1) Syncope: Plan: Syncope Moderate cervicals spinal stenosis ? Related to spinal artery stenosis DD: Dehydration secondary to diarrhea Normal orthostatics Monitor on telemetry to rule out arrhythmias --CT Head:Mild age-related findings. Degenerative change and moderate spinal stenosis at C1-2. Consider nonemergent neurosurgical consultation and MRI cervical spine as indicated. No acute infarct, bleed, or acute intracranial abnormality. -ECHO: Left ventricle EF 55 to 60%. Mild concentric LVH. Small sized basal inferior and posterior wall abnormality with hypokinesis to akinesis of the segments. Mild mitral regurgitation. Mild aortic regurgitation. Mild tricuspid regurgitation. Findings do not suggest pulmonary hypertension. -Carotid Doppler:Atherosclerosis is seen without evidence of hemodynamically significant stenosis bilaterally. Antegrade flow is shown in the vertebral arteries studies Received IV fluids Await for Ortho input No recurrence of SVT on monitor Possible enterocolitis Ongoing abdominal pain associated with constipation Likely overflow diarrhea h/o choledocholithiasis --CT ABD:Possible enterocolitis versus artifact from under distention, correlate clinically. No acute intra-abdominal or intrapelvic abnormality otherwise noted. -- BioFire negative --Patient recently had EGD, ERCP as per record --Trial of Bentyl for pain control --Advance diet as tolerated -- Discussed with GI Case on 09/08/2023: Recommends outpatient colonoscopy -- Leukocytosis resolved Stool studies if recurrence of diarrhea Clinically improving Hypokalemia Replete electrolytes as needed Monitor SVT PVCs Resume metoprolol Monitor and replace electrolytes as needed Appreciate cardiology input Urinary retention due to BPH Bladder scan as needed Added Flomax Appreciate cardiology input Replace Banda catheter if urinary retention worsens Will need to follow urology on discharge Chronic hyponatremia Sodium 132 today Monitor Thrombocytopenia No bleeding issues currently Hold Lovenox for now Monitor platelet Platelet count better today Chronic systolic heart failure CAD S/P stent PVD Hyperlipidemia Continue aspirin, Plavix, statin GERD on PPI and famotidine Rheumatoid arthritis on hydroxychloroquine Past tobacco abuse as per record DVT Px: Lovenox SQ--held Re: Thrombocytopenia Code Status Full code Admission and Anticipated Discharge Date Admission Date: September 07, 2023 Subjective Patient is seen and examined at bedside Abdominal pain continues to improve No diarrhea today Nausea improving as well Feels unsteady with ambulation today Tolerating current diet Discussed with patient's family at bedside Also discussed with GI today Denies any chest pain, dyspnea Review of Systems Review of Systems: All systems reviewed & are unremarkable except as noted in Subjective Physical Exam Physical Exam: Physical Exam: Vitals signs as noted above General Appearance:Moderately built and nourished, no apparent distress Head: normocephalic, Atraumatic Eyes: normal inspection, EOMI Neck: supple, Trachea midline Respiratory/Chest: Normal breath sounds, CTA, No accessory muscle use Cardiovascular: S1, S2, + murmur Abdomen/GI:Soft, mild tender, Bowel sounds present Extremities/Musculoskeletal:normal inspection, no edema Neurologic/Psych:AAOX3, grossly no focal neurological deficits Skin: normal color, warm Results & Data Results & Data Vital Signs (Past 12 Hours) Vital Signs Temp Pulse Pulse Resp BP BP Pulse Ox 09/08/23 16:34 66 09/08/23 15:57 36.5 C 61 18 135/78 97 09/08/23 12:32 36.8 C 70 18 135/79 96 09/08/23 10:34 09/08/23 07:44 36.5 C 72 18 150/84 H 95 09/08/23 06:00 71 O2 Del Method 09/08/23 16:34 09/08/23 15:57 Room Air 09/08/23 12:32 Room Air 09/08/23 10:34 Room Air 09/08/23 07:44 Room Air 09/08/23 06:00 Laboratory Results Short CBC 09/08/23 Range/Units 05:34 WBC 4.87 (4.8-10.8) K/ul Hgb 13.0 L (14.0-18.0) g/dl Hct 35.8 L (42.0-52.0) % Plt Count 95 L (130-400) K/uL BMP 09/08/23 05:34 Sodium 132 L Potassium 3.4 L Chloride 103 Carbon Dioxide 25 BUN 6 Creatinine 0.64 Glucose 92 Calcium 7.9 L (1) Syncope Syncope type: unspecified Qualified Code(s): R55 - Syncope and collapse
[2023-09-08] MEDS: CALCIUM CARBONATE 500 MG CHEWABLE TAB PO PRN (23:32)
[2023-09-09 07:28] LABS: Calcium 8.1 mg/dl (8.6-10.3); Magnesium 1.7 mg/dl (1.7-2.4); Potassium 3.6 mmol/L (3.5-5.1)
[2023-09-09 07:34] LABS: BUN Creatinine Ratio 15.2 (10-20); Creatinine Clr Calc Pharmacy 74.2 ml/min; Est GFR (African American) 110.4 ml/min; Est GFR (Non-African American) 95.2 ml/min
[2023-09-09 09:12] LABS: Adenovirus F 40/41 PCR Not Detected (NotDetected); Astrovirus PCR Not Detected (NotDetected); Campylobacter PCR Not Detected (NotDetected); Cryptosporidium PCR Not Detected (NotDetected); Cyclospora cayetanensis PCR Not Detected (NotDetected); Entamoeba histolytica PCR Not Detected (NotDetected); Enteroaggregative E.coli(EAEC) Not Detected (NotDetected); Enteropathogenic E.coli (EPEC) Not Detected (NotDetected); Enterotoxigenic E.coli (ETEC) Not Detected (NotDetected); Giardia lamblia PCR Not Detected (NotDetected); Norovirus GI/GII PCR Not Detected (NotDetected); Plesiomonas shigelloides PCR Not Detected (NotDetected); Rotavirus A PCR Not Detected (NotDetected); Salmonella PCR Not Detected (NotDetected); Sapovirus PCR Not Detected (NotDetected); Shiga-like Toxin E.coli (STEC) Not Detected (NotDetected); Shigella/Enteroinvasive E.coli Not Detected (NotDetected); Vibrio cholerae PCR Not Detected (NotDetected); Vibrio species PCR Not Detected (NotDetected); Yersinia enterocolitica PCR Not Detected (NotDetected)
--- NOTE | 2023-09-09 09:41 | Consultation ---
Date of Consultation September 09, 2023 Assessment & Plan (1) Syncope: Dr. Kraft has reviewed imaging and treatment plan. Patient on MRI does not show any evidence of severe central canal stenosis. He does have foraminal stenosis but this is not the cause or reason for his syncopal episode. He is currently asymptomatic regarding his cervical spine. No further treatment warranted from a spine standpoint. he can follow-up as an outpatient on an as- needed basis if he starts to have any type of cervical or upper extremity issues. Will sign off. History of Present Illness Attending Physician: Aroldo Ortiz MD History of Present Illness Is a 72-year-old gentleman who presented to the emergency room on September 05, 2023 with after he sustained a syncopal episode and had generalized weakness and GI distress. He was at his sister's house and had been battling a GI bug for couple days and grown very weak and had a syncopal episode. He has been admitted since. We are asked to consult regarding his cervical spine. He has some occasional neck pain off-and-on but no recent flareups or episodes. He is currently asymptomatic. He denies any upper extremity pain, paresthesia, numbness or weakness. He ambulates independently. He lives at home alone Allergies Allergy/AdvReac Type Severity Reaction Status Date / Time amoxicillin [From Augmentin] Allergy Intermediate Hives Verified 09/06/23 01:03 clavulanic acid Allergy Intermediate Hives Verified 09/06/23 01:03 [From Augmentin] indomethacin AdvReac Unknown pt not Verified 09/06/23 01:03 sure / doesn't sound familiar oxycodone AdvReac Unknown ? details Verified 09/06/23 01:03 unclear -HEAD FELT [id number]-[id number] DOESN'T LIKE Home Medications Medication Instructions Recorded Confirmed Type ascorbic acid (vitamin C) 500 mg 500 mg PO QAM 02/21/22 09/06/23 History tablet aspirin 81 mg tablet,delayed 81 mg PO QAM 02/21/22 09/06/23 History release atorvastatin 10 mg tablet 10 mg PO QPM 02/21/22 09/06/23 History coenzyme Q10 100 mg capsule 200 mg PO QPM 02/21/22 09/06/23 History (CoQ-10) cyanocobalamin (vitamin B-12) 500 500 mcg PO QAM 02/21/22 09/06/23 History mcg tablet (Vitamin B-12) folic acid 1 mg tablet 2 mg PO QAM 02/21/22 09/06/23 History hydroxychloroquine 200 mg tablet 400 mg PO QAM 02/21/22 09/06/23 History (Plaquenil) bimatoprost 0.01 % eye drops 1 drp OPB QPM 08/10/23 09/06/23 History (Lumigan) cetirizine 10 mg tablet 10 mg PO DAILY 08/10/23 09/06/23 History dorzolamide 22.3 mg-timolol 6.8 1 drp OPL TID 08/10/23 09/06/23 History mg/mL eye drops fluticasone propionate 50 2 spray intranasal DAILY PRN 08/10/23 09/06/23 History mcg/actuation nasal Congestion spray,suspension gabapentin 300 mg capsule 300 mg PO BID 08/10/23 09/06/23 History zolpidem 10 mg tablet 10 mg PO HS PRN Sleep 08/10/23 09/06/23 History famotidine 40 mg tablet 40 mg PO HS 09/06/23 09/06/23 History ondansetron 8 mg disintegrating 8 mg translingual Q6H PRN 09/06/23 09/06/23 History tablet NAUSEA/VOMITING polyethylene glycol 3350 17 17 g PO BID 09/06/23 09/06/23 History gram/dose oral powder (Miralax) turmeric root extract 1,053 mg 1,053 mg PO DAILY 09/06/23 09/06/23 History tablet clopidogrel 75 mg tablet 75 mg PO DAILY 09/08/23 09/08/23 History pantoprazole 40 mg tablet,delayed 40 mg PO DAILY #30 tabs 09/08/23 Rx release dicyclomine 10 mg capsule 10 mg PO BID PRN Abdominal Pain 09/09/23 Rx #10 caps metoprolol succinate 25 mg 25 mg PO QAM #30 tabs 09/09/23 Rx tablet,extended release 24 hr tamsulosin 0.4 mg capsule 0.4 mg PO HS #30 caps 09/09/23 Rx Patient History Medical History Family history of reaction to anesthesia Sister slow to wake- groggy; pt denies any personal issues with anesthesia [place] (hard of hearing) Pancreatic cyst GERD (gastroesophageal reflux disease) Hiatal hernia Mitral valve prolapse Myocardial infarction 2005 Hyperlipidemia Rheumatoid arthritis On Plaquenil HTN (hypertension) Surgical History Hx of endoscopic retrograde cholangiopancreatography 02/22/22 [place] History of colonoscopy History of bilateral hip replacements History of right shoulder replacement History of left shoulder replacement History of total right knee replacement History of back surgery 2003 History of endoscopy with ultrasound feb 21 2022 (SocialDiabetes) - stone in common bile duct & gallbladder is full of stones - had subsequent ERCP 02/22/22 History of cardiac cath Hx mi...stent x1 2005 stent x 1 2006, stent x 1 2009 History of lumbar fusion 2014 Family History Other No family history of adverse response to anesthesia Social History Smoking Status: Former smoker Second Hand Exposure: No; Hx Alcohol Use: Yes (OCCASSIONAL) Hx Substance Use: No Preferred Language: Frisian Communication Ability: Effective Patient Services Assistant Required: No Beliefs That Will Affect Care: None Current Living Situation: Alone Feels Safe at Home: Yes Assistive Devices: None Review of Systems Review of Systems: All systems reviewed & are unremarkable except as noted in HPI & below Physical Exam Physical Exam: He sitting in a chair no acute distress Alert and oriented x 3 He does have limited range of motion with full flexion extension [id number] rotation of his neck. This does not reproduce pain though. Negative Spurling sign. Negative Lhermitte's phenomenon. No evidence of upper motor neuron signs bilateral upper extremities Strength is 5/5 bilateral finger intrinsics, wrist extensors, wrist flexors, biceps, triceps, deltoid Results & Data Vital Signs (Past 12 Hours) Vital Signs Temp Pulse Pulse Resp BP Pulse Ox O2 Del Method 09/09/23 07:48 36.4 C L 89 18 136/86 97 Room Air 09/09/23 07:16 76 09/09/23 02:55 36.5 C 66 16 139/80 96 Room Air 09/08/23 22:57 Room Air 09/08/23 22:51 36.6 C 67 18 152/82 H 94 Room Air 09/08/23 21:59 66 Diagnostic Findings [place] [phone] Magnetic Resonance Report Patient: SHIMON ALANIS Admit Date: 09/07/23 MR#: [id number] Address1: [address] Acct ID:[id number] Address2: Date: 1950 [facility] Zip: [place] [address] Age: 72 Location: [facility]: [facility] Phy: Aroldo Ortiz MD Diagnosis: SYNCOPE Adrienne Phy: Todd Spivey M.D. Service Date: 09/08/23 Fam Phy: Interpreting Phy: Florencio NuñezAdmit Phy: Aroldo Ortiz MD Ordering Phy: Sri Calderon cc: ~ MR cervical spine wo con HISTORY: 72 years-old Male eval C1-C2 stenosis; syncope chronic neck pain COMPARISON: None. TECHNIQUE: Multiplanar multisequence MRI of the cervical spine was obtained without IV contrast. FINDINGS: The imaged posterior fossa structures appear unremarkable. There is normal signal within the brainstem, cervical and imaged upper thoracic spinal cord. No acute fracture, subluxation, endplate erosion or significant bone marrow edema. Unremarkable soft tissues. Study is motion degraded. C1-C2: There is a small degenerative pannus posterior to the dens. There is moderate narrowing at the craniocervical junction with AP dimension of the thecal sac measuring approximately 7 mm. There is mild deformity upon the dorsal aspect of the upper cervical spinal cord. C2-C3: Mild intervertebral disc space narrowing. Small posterior disc osteophyte complex with moderate to severe facet arthrosis. Central canal is patent. Mild left with mild to moderate right neural foraminal narrowing. C3-C4: Mild intervertebral disc space narrowing with small posterior disc osteophyte complex. Moderate to severe facet arthrosis. Central canal is patent. Moderate to severe bilateral foraminal stenosis. C4-C5: Moderate intervertebral disc space narrowing with small posterior disc osteophyte complex. Moderate to severe facet arthrosis. Mild central canal stenosis with AP dimension of the thecal sac measuring 7 mm. Severe right with moderate left foraminal narrowing. C5-C6: Severe intervertebral disc space narrowing with circumferential disc osteophyte complex and moderate to advanced facet arthrosis. Mild central canal stenosis with AP dimension of the thecal sac measuring 7 mm. Severe bilateral foraminal narrowing. C6-C7: Moderate intervertebral disc space narrowing with left paracentral/left l ateral recess small disc osteophyte complex. Moderate facet arthrosis. The central canal is patent. Severe left with mild to moderate right foraminal narrowing. C7-T1: Moderate intervertebral disc space narrowing with small posterior disc osteophyte complex and mild facet arthrosis. The central canal is patent. Mild right with mild to moderate left foraminal narrowing. IMPRESSION: 1. Moderate narrowing at the craniocervical junction. 2. Discogenic degeneration with uncovertebral hypertrophy and facet arthrosis as above resulting in multilevel neural foraminal stenosis. 3. Mild central canal stenosis at C5-C6 and C6-C7. 4. Normal signal within the imaged brainstem and cervical spinal cord. ACT 112: Negative or not required by law. The above report was generated using voice recognition software. It may contain grammatical, syntax or spelling errors. Dictated: 09/08/2023 4:30 PM Transcribed: 09/08/2023 4:51 PM Michelle [id number] MICHAEL_Homero [id number] Electronically signed by: Florencio Nuñez M.D. 09/08/2023 5:07 PM Dictated: 09/08/23 1630 Transcribed: 09/08/23 1651 (1) Syncope Syncope type: unspecified Qualified Code(s): R55 - Syncope and collapse
--- NOTE | 2023-09-09 10:06 | Gastroenterology Progress Note ---
Date of Service September 09, 2023 Assessment & Plan (1) Chronic abdominal pain: (2) Chronic constipation with overflow: Plan Patient is a 72 yo male with chronic abdominal pain. He has underwent biliary procedures with Dr. Bonner of [facility] and per notes it appears Dr. Bonner s uggested that the biliary findings of sludge and stenosed sphincterotomy site may be the cause of his symptoms. It appears Dr. Malhotra of [facility] initiated him on Dicyclomine during this stay. Would use judiciously to prevent worsening constipation. Discussed with patient that if his pain is post- ERCP/sphincterotomy pain, he may not be able to alleviate this entirely. He should follow-up with Dr. Bonner for further advisement. As for his bowels, consider Miralax daily along with Metamucil daily as a component of his diarrhea may be overflow related. Would ask that case management assist patient in setting up follow-up with Dr. Bonner for any further treatment or interventions (ie--colonoscopy). Admission and Anticipated Discharge Date Admission Date: September 07, 2023 Subjective Patient is a 72 yo male who is typically cared for by Dr. Bonner for chronic biliary issues & abdominal pain. An EGD/EUS/ERCP on 08/20 indicated a stenosed sphincterotomy site with notable sludge. Dr. Bonner noted on the report that this was likely related to the patient's ongoing abdominal pain. A KUB ordered through [facility] on 09/01 indicated constipation may be leading to some of his abdominal pain and overflow diarrhea. He notes he felt "wiped" from using Miralax for this issue. He was evaluated by Dr. Malhotra earlier in this hospitalization after having a poor quality CT inpatient questioning enterocolitis vs underdistention as there was no oral contrast. Dicyclomine was added for relief of biliary pain. Per patient, last colonoscopy was in 2017. The patient notes that he is feeling Ok today. He has plans to follow-up with Dr. Bonner of [facility]. Review of Systems Gastrointestinal: + abdominal pain (stable today) and + ch corin in bowel habits Physical Exam Constitutional: well developed Respiratory: normal respiratory effort Gastrointestinal (Abdomen): normal bowel sounds, soft, nontender, no hepatosplenomegaly Psychiatric: Orientation: alert and oriented x 3 Results & Data Results & Data Vital Signs (Past 12 Hours) Vital Signs Temp Pulse Pulse Resp BP Pulse Ox O2 Del Method 09/09/23 07:48 36.4 C L 89 18 136/86 97 Room Air 09/09/23 07:16 76 09/09/23 02:55 36.5 C 66 16 139/80 96 Room Air 09/08/23 22:57 Room Air 09/08/23 22:51 36.6 C 67 18 152/82 H 94 Room Air PG Care Time/CCT Total # of Minutes Spent Total Time Spent with Patient: Total time spent is greater than 50% in coordination of care (as documented) at patient's floor/unit and/or counseling patient: Coding Level of Care Code 13897 SUB INP/OBS CARE 3/50MIN Diagnoses Chronic abdominal pain R10.9; G89.29 Chronic constipation with overflow K59.09
--- NOTE | 2023-09-09 13:25 | Hospitalist Progress Note ---
Date of Service September 09, 2023 Assessment & Plan (1) Syncope: Plan: Syncope Moderate cervicals spinal stenosis ? Related to spinal artery stenosis DD: Dehydration secondary to diarrhea Normal orthostatics Monitor on telemetry to rule out arrhythmias --CT Head:Mild age-related findings. Degenerative change and moderate spinal stenosis at C1-2. Consider nonemergent neurosurgical consultation and MRI cervical spine as indicated. No acute infarct, bleed, or acute intracranial abnormality. -ECHO: Left ventricle EF 55 to 60%. Mild concentric LVH. Small sized basal inferior and posterior wall abnormality with hypokinesis to akinesis of the segments. Mild mitral regurgitation. Mild aortic regurgitation. Mild tricuspid regurgitation. Findings do not suggest pulmonary hypertension. -Carotid Doppler:Atherosclerosis is seen without evidence of hemodynamically significant stenosis bilaterally. Antegrade flow is shown in the vertebral arteries studies -Cervical MRI:Moderate narrowing at the craniocervical junction.. Discogenic degeneration with uncovertebral hypertrophy and facet arthrosis as above resulting in multilevel neural foraminal stenosis.. Mild central canal stenosis at C5-C6 and C6-C7. Normal signal within the imaged brainstem and cervical spinal cord. -Appreciate orthopedic spine input: No significant central canal stenosis that would likely cause the syncopal episode. Can follow-up with orthopedics as needed as outpatient Received IV fluids No recurrence of issues while hospitalized Possible enterocolitis Ongoing abdominal pain associated with constipation intermittently for many months Likely overflow diarrhea h/o choledocholithiasis --CT ABD:Possible enterocolitis versus artifact from under distention, correlate clinically. No acute intra-abdominal or intrapelvic abnormality otherwise noted. -- BioFire negative --Patient recently had EGD, ERCP as per record --Trial of Bentyl for pain control -- Discussed with GI Dr. Clarke on 09/08/2023: Recommends outpatient colonoscopy, daily MiraLAX, Metamucil -- Leukocytosis resolved Stool PCR negative tolerating current diet Advised to follow-up with gastroenterology for outpatient colonoscopy Hypokalemia Replete electrolytes as needed Monitor SVT PVCs Resume metoprolol Monitor and replace electrolytes as needed Appreciate cardiology input Urinary retention due to BPH Bladder scan as needed Added Flomax Appreciate cardiology input Replace Banda catheter if urinary retention worsens Will need to follow urology on discharge Chronic hyponatremia Sodium 132 today Monitor Thrombocytopenia No bleeding issues currently Monitor platelets Chronic systolic heart failure CAD S/P stent PVD Hyperlipidemia Continue aspirin, Plavix, statin GERD on PPI and famotidine Rheumatoid arthritis on hydroxychloroquine Past tobacco abuse as per record DVT Px: Lovenox SQ--held Re: Thrombocytopenia Code Status Full code Disposition Home Admission and Anticipated Discharge Date Admission Date: September 07, 2023 Subjective Patient is seen and examined at bedside Continues to feel better No significant abdominal pain today Tolerating current diet Updated patient's sister over the phone Did well with PT today Denies any chest pain, dyspnea Plan to discharge home today Review of Systems Review of Systems: All systems reviewed & are unremarkable except as noted in Subjective Physical Exam Physical Exam: Physical Exam: Vitals signs as noted above General Appearance:Moderately built and nourished, no apparent distress Head: normocephalic, Atraumatic Eyes: normal inspection, EOMI Neck: supple, Trachea midline Respiratory/Chest: Normal breath sounds, CTA, No accessory muscle use Cardiovascular: S1, S2, + murmur Abdomen/GI:Soft, mild tender, Bowel sounds present Extremities/Musculoskeletal:normal inspection, no edema Neurologic/Psych:AAOX3, grossly no focal neurological deficits Skin: normal color, warm Results & Data Results & Data Vital Signs (Past 12 Hours) Vital Signs Temp Pulse Pulse Resp BP BP Pulse Ox 09/09/23 11:53 36.3 C L 84 18 125/82 125/82 93 09/09/23 07:48 36.4 C L 89 18 136/86 97 09/09/23 07:16 76 09/09/23 02:55 36.5 C 66 16 139/80 96 O2 Del Method 09/09/23 11:53 Room Air 09/09/23 07:48 Room Air 09/09/23 07:16 09/09/23 02:55 Room Air Laboratory Results BMP 09/09/23 06:38 Sodium 132 L Potassium 3.6 Chloride 101 Carbon Dioxide 25 BUN 10 Creatinine 0.66 Glucose 92 Calcium 8.1 L (1) Syncope Syncope type: unspecified Qualified Code(s): R55 - Syncope and collapse
--- NOTE | 2023-09-09 13:44 | Discharge Summary ---
Date of Service September 09, 2023 Admission HPI Per Admitting Provider History obtained from patient, family, and records. Medical history significant for chronic systolic heart failure (EF 40%, TTE 2021), CAD status post stent, PVD, hypertension, hyperlipidemia, valvular heart disease (moderate AR/MR/TR, TTE 2021), GERD, history of choledocholithiasis, rheumatoid arthritis, prostate enlargement, past tobacco abuse. 6 weeks ago, patient upper abdominal discomfort more in the right with nausea and poor appetite symptoms. 08/09 Patient evaluated at [facility] ER. CT abdomen and pelvis showed prostatomegaly/bladder outlet obstruction. Patient advised to follow-up with [facility] GI specialist. 08/20 Outpatient endoscopy done at [facility]. Normal EGD. ERCP showed sludge. Biliary sphincterotomy performed. Persistent abdominal discomfort post endoscopy as per patient. Good bowel movement. 08/29 Plain x-ray of the abdomen requested by GI specialist showed moderate colonic fecal material. MiraLAX course prescribed by GI specialist. Increasing abdominal discomfort with watery diarrhea. Patient/family did not think of stopping laxative Rx from GI specialist. 08/31 Patient consulted [facility] ER. CT abdomen pelvis showed 1. No acute process within the abdomen or pelvis. 2. Pneumobilia, as expected. No CT evidence for pancreatitis. 3. No bowel obstruction. No bowel wall thickening. Normal appendix. Patient discharged home and advised to follow-up with GI specialist. Continued abdominal discomfort with diarrhea at home. Urinary retention symptoms present since last year. No fever, no chills. Increasing weakness. Unresponsive episode for about 5 minutes while on the commode. Patient denies headache, chest pain, SOB. Lowest SBP of 90s documented at the ER. 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 Admission Exam Per Admitting Provider GENERAL: Comfortable, slightly hard of hearing, no respiratory distress SKIN: Normal color, warm HEENT: Alopecia, [place] palpebral conjunctivae, no ptosis, dry buccal mucosa NECK : Supple, no tenderness CHEST : CTA, no tenderness HEART : RRR, systolic murmur ABDOMEN: Some distention, minimal central abdominal tenderness EXTREMITIES : No LE swelling/tenderness, no other conspicuous deformities noted NEUROLOGIC : Coherent, no facial asymmetry, slightly hard of hearing, gait and stance not assessed Principal Diagnosis Syncope Possible enterocolitis Vs overflow diarrhea Urinary retention Discharge Data Allergies Allergy/AdvReac Type Severity Reaction Status Date / Time amoxicillin [From Augmentin] Allergy Intermediate Hives Verified 09/06/23 01:03 clavulanic acid Allergy Intermediate Hives Verified 09/06/23 01:03 [From Augmentin] indomethacin AdvReac Unknown pt not Verified 09/06/23 01:03 sure / doesn't sound familiar oxycodone AdvReac Unknown ? details Verified 09/06/23 01:03 unclear -HEAD FELT [id number] DOESN'T LIKE Consultations 09/06/23 02:53 ED Decision to Admit Stat 09/06/23 06:00 Consult Urology QSE 09/06/23 06:11 Consult Gastroenterology Routine 09/06/23 08:18 Consult Orthopedic Surgery Routine 09/06/23 14:00 Consult Urology QSE 09/06/23 22:00 Consult Urology QSE 09/07/23 08:02 Consult Cardiology Routine Procedures Performed Laboratory Results WBC 4.87 K/ul (4.8-10.8) 09/08/23 05:34 RBC 3.83 M/uL (4.70-6.10) L 09/08/23 05:34 Hgb 13.0 g/dl (14.0-18.0) L 09/08/23 05:34 Hct 35.8 % (42.0-52.0) L 09/08/23 05:34 MCV 93.5 fL (80.0-100.0) 09/08/23 05:34 MCH 33.9 pg (25.0-34.0) 09/08/23 05:34 MCHC 36.3 g/dL (32.0-36.0) H 09/08/23 05:34 RDW Std Deviation 43.8 fL (36.4-46.3) 09/08/23 05:34 RDW Coeff of Ranjan 12.9 % (11.5-14.5) 09/08/23 05:34 Plt Count 95 K/uL (130-400) L 09/08/23 05:34 MPV 10.7 fL (9.4-12.4) 09/08/23 05:34 Immature Gran % (Auto) 0.4 % 09/08/23 05:34 Neut % (Auto) 63.0 % 09/08/23 05:34 Lymph % (Auto) 17.7 % 09/08/23 05:34 [place] % (Auto) 12.1 % 09/08/23 05:34 Eos % (Auto) 6.2 % 09/08/23 05:34 Baso % (Auto) 0.6 % 09/08/23 05:34 Neut # (Auto) 3.07 K/uL (1.40-6.50) 09/08/23 05:34 Lymph # (Auto) 0.86 K/uL (1.20-3.40) L 09/08/23 05:34 [place] # (Auto) 0.59 K/uL (0.11-0.59) 09/08/23 05:34 Eos # (Auto) 0.30 K/uL (0.00-0.50) 09/08/23 05:34 Baso # (Auto) 0.03 K/uL (0.00-0.20) 09/08/23 05:34 Immature Gran # (Auto) 0.02 K/uL (0.01-0.20) 09/08/23 05:34 Toxic Vacuolation 1+ 09/07/23 05:19 Platelet Estimate Decreased (Normal) L 09/08/23 05:34 PT 12.9 Seconds (9.0-12.0) H 09/05/23 23:16 INR 1.2 (0.9-1.1) H 09/05/23 23:16 Sodium 132 mmol/L (136-145) L 09/09/23 06:38 Potassium 3.6 mmol/L (3.5-5.1) 09/09/23 06:38 Chloride 101 mmol/L (98-107) 09/09/23 06:38 Carbon Dioxide 25 mmol/L (21-32) 09/09/23 06:38 Anion Gap 6 (3-11) 09/09/23 06:38 BUN 10 mg/dl (6-23) 09/09/23 06:38 Creatinine 0.66 mg/dl (0.6-1.4) 09/09/23 06:38 Est Cr Clr Drug Dosing 74.2 ml/min 09/09/23 06:38 Est GFR ( Amer) 110.4 ml/min 09/09/23 06:38 Est GFR (Non-Af Amer) 95.2 ml/min 09/09/23 06:38 BUN/Creatinine Ratio 15.2 (10-20) 09/09/23 06:38 Glucose 92 mg/dl (70-99(Fasting)) 09/09/23 06:38 Lactate 1.6 mmol/L (0.4-2.0) 09/06/23 07:08 Calcium 8.1 mg/dl (8.6-10.3) L 09/09/23 06:38 Magnesium 1.7 mg/dl (1.7-2.4) 09/09/23 06:38 Total Bilirubin 1.7 mg/dl (0.2-1.0) H 09/05/23 23:16 AST 17 U/L (13-39) 09/05/23 23:16 ALT 15 U/L (7-52) 09/05/23 23:16 Alkaline Phosphatase 83 U/L (34-104) 09/05/23 23:16 Total Creatine Kinase 57 U/L (30-223) 09/05/23 23:16 Troponin I High Sens 11.7 pg/ml (0-20) 09/06/23 02:18 Total Protein 6.6 gm/dl (6.0-8.3) 09/05/23 23:16 Albumin 4.0 gm/dl (3.4-5.0) 09/05/23 23:16 Globulin 2.6 gm/dl (2.5-4.0) 09/05/23 23:16 Albumin/Globulin Ratio 1.5 (0.9-2) 09/05/23 23:16 Lipase 31 U/L (11-82) 09/05/23 23:16 TSH 1.178 uIu/ml (0.300-4.500) 09/05/23 23:16 Urine Color Yellow 09/06/23 02:03 Urine Appearance Clear (Clear) 09/06/23 02:03 Urine pH 6.5 (4.5-7.5) 09/06/23 02:03 Ur Specific [place] 1.017 (1.000-1.030) 09/06/23 02:03 Urine Protein Negative (Negative) 09/06/23 02:03 Urine Glucose (UA) Negative (Negative) 09/06/23 02:03 Urine Ketones Trace (Negative) H 09/06/23 02:03 Urine Blood Negative (Negative) 09/06/23 02:03 Urine Nitrite Negative (Negative) 09/06/23 02:03 Urine Bilirubin Negative (Negative) 09/06/23 02:03 Urine Urobilinogen Negative (Negative) 09/06/23 02:03 Ur Leukocyte Esterase Negative (Negative) 09/06/23 02:03 Stl C. cayetanensis PCR Not Detected (NotDetected) 09/09/23 Unknown Stool Rotavirus A PCR Not Detected (NotDetected) 09/09/23 Unknown Stl Adenov F 40/41 PCR Not Detected (NotDetected) 09/09/23 Unknown Stool Astrovirus (PCR) Not Detected (NotDetected) 09/09/23 Unknown Stool Campylobacter PCR Not Detected (NotDetected) 09/09/23 Unknown Stl C. diff Tox B Gene Negative Cdiff Gene (Neg) 09/09/23 Unknown Stool Cryptosporidium PCR Not Detected (NotDetected) 09/09/23 Unknown Stl E.coli Shiga Tox PCR Not Detected (NotDetected) 09/09/23 Unknown Stl Enterotoxigenic E PCR Not Detected (NotDetected) 09/09/23 Unknown Stool EPEC (PCR) Not Detected (NotDetected) 09/09/23 Unknown Stool EAEC (PCR) Not Detected (NotDetected) 09/09/23 Unknown Stl E. histolytica PCR Not Detected (NotDetected) 09/09/23 Unknown Stool Giardia Lamblia PCR Not Detected (NotDetected) 09/09/23 Unknown Stool Salmonella PCR Not Detected (NotDetected) 09/09/23 Unknown Stool Sapovirus (PCR) Not Detected (NotDetected) 09/09/23 Unknown Stl P. shigelloides PCR Not Detected (NotDetected) 09/09/23 Unknown Stl Shigella/EIEC PCR Not Detected (NotDetected) 09/09/[address].enterocolitica PCR Not Detected (NotDetected) 09/09/23 Unknown Stool Vibrio (PCR) Not Detected (NotDetected) 09/09/23 Unknown Stl Vibrio cholerae PCR Not Detected (NotDetected) 09/09/23 Unknown Stl Norovirus GI/GII PCR Not Detected (NotDetected) 09/09/23 Unknown Adenovirus (PCR) Not Detected (NotDetected) 09/05/23 23:45 B. pertussis DNA (PCR) Not Detected (NotDetected) 09/05/23 23:45 B.parapertussis DNA PCR Not Detected (NotDetected) 09/05/23 23:45 C. pneumoniae DNA (PCR) Not Detected (NotDetected) 09/05/23 23:45 Coronavirus OC43 (PCR) Not Detected (NotDetected) 09/05/23 23:45 Coronavirus HKU1 (PCR) Not Detected (NotDetected) 09/05/23 23:45 Coronavirus 229E (PCR) Not Detected (NotDetected) 09/05/23 23:45 SARS-CoV-2 (PCR) Not Detected (NotDetected) 09/05/23 23:45 Coronavirus NL63 (PCR) Not Detected (NotDetected) 09/05/23 23:45 Human Metapneumovir PCR Not Detected (NotDetected) 09/05/23 23:45 Influenza Type A (PCR) Not Detected (NotDetected) 09/05/23 23:45 Influenza Type B (PCR) Not Detected (NotDetected) 09/05/23 23:45 M. pneumoniae (PCR) Not Detected (NotDetected) 09/05/23 23:45 Parainfluenza 1 (PCR) Not Detected (NotDetected) 09/05/23 23:45 Parainfluenza 2 (PCR) Not Detected (NotDetected) 09/05/23 23:45 Parainfluenza 3 (PCR) Not Detected (NotDetected) 09/05/23 23:45 Parainfluenza 4 (PCR) Not Detected (NotDetected) 09/05/23 23:45 RSV (PCR) Not Detected (NotDetected) 09/05/23 23:45 Entero/Rhino (PCR) Not Detected (NotDetected) 09/05/23 23:45 Blood Type A Positive 09/05/23 23:16 Antibody Screen NEGATIVE 09/05/23 23:16 Impressions Chest X-Ray 09/05/23 23:01 XR chest 1V portable HISTORY: syncope COMPARISON: Chest 08/10/2023. FINDINGS: No pneumothorax. No pleural effusions. No focal lung consolidations to suggest pneumonia. No evidence for pulmonary edema. There is a small right azygos lobe. Calcifications within the aortic knob. Bilateral total shoulder arthroplasties are noted. IMPRESSION: No significant change compared to the prior study. No acute process. ACT 112: Negative or not required by law. Electronically signed by: Reza Ratliff M.D. 09/06/2023 8:11 AM Abdomen/Pelvis CT 09/05/23 23:36 Exam(s): CT ABDOMEN + PELVIS With Contrast IV Amt: 94 ml opti 320 EXAM: CT Abdomen and Pelvis With Intravenous Contrast CLINICAL HISTORY: Reason for exam: abdominal pain; vomiting. TECHNIQUE: Axial computed tomography images of the abdomen and pelvis with intravenous contrast. Automated exposure control was utilized for the study. A dose lowering technique was utilized adhering to the principles of ALARA. Metal artifact from orthopedic hardware in the spine and bilateral hips. 94 ML Optiray 320 given IV. CONTRAST: Patient received 94 ml opti 320 of IV contrast COMPARISON: CT abdomen pelvis 09/01/23. FINDINGS: Lung bases: Linear scarring lung bases. Extensive coronary artery atherosclerosis. Liver: Stable pneumobilia. Gallbladder and bile ducts: Cholecystectomy. No ductal dilation. Pancreas: No ductal dilation. Spleen: Unremarkable. Adrenals: Unremarkable. Kidneys and ureters: No pyelonephritis or hydronephrosis. Stomach and bowel: Fairly collapsed small bowel and colon, wall thickening may be artifact, cannot rule out mild enterocolitis. No obstruction. Appendix: No acute appendicitis. Intraperitoneal space: No free air or fluid. Bones/joints: No acute fracture. Soft tissues: Unremarkable. Vasculature: Moderate aortoiliac atherosclerosis. No aortic aneurysm. Lymph nodes: No enlarged lymph nodes. Bladder: Moderately distended, may be physiologic, cannot rule out urinary retention. Reproductive: Unremarkable as visualized. IMPRESSION: 1. Possible enterocolitis versus artifact from under distention, correlate clinically. 2. No acute intra-abdominal or intrapelvic abnormality otherwise noted. Electronically signed by: Michelle Santillan M.D. 09/06/23 02:[address] 09/05/23 23:36 Exam(s): CT HEAD Without Contrast EXAM: CT Head Without Intravenous Contrast CLINICAL HISTORY: Reason for exam: syncope. TECHNIQUE: Axial computed tomography images of the head/brain without intravenous contrast. Automated exposure control was utilized for the study. A dose lowering technique was utilized adhering to the principles of ALARA. Mild motion artifact. COMPARISON: None. FINDINGS: Brain: No mass effect or acute infarct. No acute hemorrhage. Mild atrophy and chronic white matter disease. Ventricles: No hydrocephalus or midline shift. Bones/joints: No acute bony lesion. Degenerative change at C1-2 with mild pannus formation and moderate central spinal stenosis at the foramen magnum. Soft tissues: No scalp hematoma. Visualized Sinuses: Clear. Mastoid air cells: No mastoid effusion. IMPRESSION: 1. Mild age-related findings. 2. Degenerative change and moderate spinal stenosis at C1-2. Consider nonemergent neurosurgical consultation and MRI cervical spine as indicated. 3. No acute infarct, bleed, or acute intracranial abnormality. Electronically signed by: Michelle Santillan M.D. 09/06/23 01:05 AM Carotid Doppler Study 09/06/23 16:24 ULTRASOUND OF THE CAROTID ARTERIES CLINICAL HISTORY: Syncope TECHNIQUE: Real-time, grayscale, and color Doppler sonography of the bilateral carotid arteries is performed. Images are reviewed in the transverse and longitudinal planes. COMPARISON: None available at the time of this dictation. FINDINGS: The carotid arteries are patent bilaterally and demonstrate antegrade flow. There is mild atherosclerotic plaque on the right and moderate to severe atherosclerotic plaque on the left. Normal doppler arterial waveforms are seen throughout. Velocity measurements are listed below. Common carotid peak systolic velocity (cm/sec): RIGHT: 67 LEFT: 79 ICA peak systolic velocity (cm/sec): RIGHT: 57 LEFT: 83 ICA/CC peak systolic ratio: RIGHT: 0.9 LEFT: 1.1 Antegrade flow was shown in the vertebral arteries. The external carotid arteries are patent. IMPRESSION: 1. Atherosclerosis is seen without evidence of hemodynamically significant stenosis bilaterally. 2. Antegrade flow is shown in the vertebral arteries. Society of Radiologists in Ultrasound consensus guidelines: Normal: ICA PSV is <125 cm/sec and no plaque or intimal thickening is visible sonographically additional criteria include ICA/CCA PSV ratio <2.0 and ICA EDV <40 cm/sec <50% ICA stenosis: ICA PSV is <125 cm/sec and plaque or intimal thickening is visible sonographically additional criteria include ICA/CCA PSV ratio <2.0 and ICA EDV <40 cm/sec 50-69% ICA stenosis: ICA PSV is 125-230 cm/sec and plaque is visible sonographically additional criteria include ICA/CCA PSV ratio of 2.0-4.0 and ICA EDV of 40-100 cm/sec ?70% ICA stenosis but less than near occlusion: ICA PSV is >230 cm/sec and visible plaque and luminal narrowing are seen at dobbins-scale and color Doppler ultrasound (the higher the Doppler parameters lie above the threshold of 230 cm/sec, the greater the likelihood of severe disease) additional criteria include ICA/CCA PSV ratio >4 and ICA EDV >100 cm/sec ACT 112: Negative or not required by law. Electronically signed by: Pawan Rosenbaum M.D. 09/07/2023 9:22 AM KUB X-Ray 09/07/23 09:08 XR KUB/Abdomen 1 view CLINICAL HISTORY: constipation TECHNIQUE: 1 view of the abdomen was obtained. Comparison: Comparison is made to abdomen radiograph 03/18/2022 FINDINGS: Posterior fixation hardware is seen in the bilateral hips and lumbar spine. Degenerative changes are seen in the visualized skeleton. The bowel gas pattern is nonobstructive. Small stool burden is seen. IMPRESSION: Nonobstructive bowel gas pattern. ACT 112: Negative or not required by law. Electronically signed by: Pawan Rosenbaum M.D. 09/07/2023 10:24 AM Cervical Spine MRI 09/08/23 11:58 MR cervical spine wo con HISTORY: 72 years-old Male eval C1-C2 stenosis; syncope chronic neck pain COMPARISON: None. TECHNIQUE: Multiplanar multisequence MRI of the cervical spine was obtained without IV contrast. FINDINGS: The imaged posterior fossa structures appear unremarkable. There is normal signal within the brainstem, cervical and imaged upper thoracic spinal cord. No acute fracture, subluxation, endplate erosion or significant bone marrow edema. Unremarkable soft tissues. Study is motion degraded. C1-C2: There is a small degenerative pannus posterior to the dens. There is moderate narrowing at the craniocervical junction with AP dimension of the thecal sac measuring approximately 7 mm. There is mild deformity upon the dorsal aspect of the upper cervical spinal cord. C2-C3: Mild intervertebral disc space narrowing. Small posterior disc osteophyte complex with moderate to severe facet arthrosis. Central canal is patent. Mild left with mild to moderate right neural foraminal narrowing. C3-C4: Mild intervertebral disc space narrowing with small posterior disc osteophyte complex. Moderate to severe facet arthrosis. Central canal is patent. Moderate to severe bilateral foraminal stenosis. C4-C5: Moderate intervertebral disc space narrowing with small posterior disc osteophyte complex. Moderate to severe facet arthrosis. Mild central canal stenosis with AP dimension of the thecal sac measuring 7 mm. Severe right with moderate left foraminal narrowing. C5-C6: Severe intervertebral disc space narrowing with circumferential disc osteophyte complex and moderate to advanced facet arthrosis. Mild central canal stenosis with AP dimension of the thecal sac measuring 7 mm. Severe bilateral foraminal narrowing. C6-C7: Moderate intervertebral disc space narrowing with left paracentral/left lateral recess small disc osteophyte complex. Moderate facet arthrosis. The central canal is patent. Severe left with mild to moderate right foraminal narrowing. C7-T1: Moderate intervertebral disc space narrowing with small posterior disc osteophyte complex and mild facet arthrosis. The central canal is patent. Mild right with mild to moderate left foraminal narrowing. IMPRESSION: 1. Moderate narrowing at the craniocervical junction. 2. Discogenic degeneration with uncovertebral hypertrophy and facet arthrosis as above resulting in multilevel neural foraminal stenosis. 3. Mild central canal stenosis at C5-C6 and C6-C7. 4. Normal signal within the imaged brainstem and cervical spinal cord. ACT 112: Negative or not required by law. The above report was generated using voice recognition software. It may contain grammatical, syntax or spelling errors. Dictated: 09/08/2023 4:30 PM Transcribed: 09/08/2023 4:51 PM Michelle [id number] MICHAEL_Homero [id number] Electronically signed by: Florencio Nuñez M.D. 09/08/2023 5:07 PM Skull X-Ray 09/08/23 12:59 XR skull for MRI HISTORY: 72 years-old Male for MRI screening for MRI COMPARISON: Head CT 09/06/2023 TECHNIQUE: 2 views of the skull FINDINGS: No acute fracture or opaque foreign body identified. Dental amalgam hardware. Mastoid air cells and paranasal sinuses are generally clear. IMPRESSION: No opaque foreign body identified. ACT 112: Negative or not required by law. The above report was generated using voice recognition software. It may contain grammatical, syntax or spelling errors. Electronically signed by: Florencio Nuñez M.D. 09/08/2023 3:01 PM Ordered Studies 09/05/23 23:36 CT Abd and Pelvis [CT abd pelvis IV con only] Stat CT head/brain wo con Stat 09/06/23 16:24 US carotid doppler BI Routine 09/08/23 11:58 MR cervical spine wo con Routine Hospital Course (1) Syncope: Syncope Moderate cervicals spinal stenosis ? Related to spinal artery stenosis DD: Dehydration secondary to diarrhea Normal orthostatics Monitor on telemetry to rule out arrhythmias --CT Head:Mild age-related findings. Degenerative change and moderate spinal stenosis at C1-2. Consider nonemergent neurosurgical consultation and MRI cervical spine as indicated. No acute infarct, bleed, or acute intracranial abnormality. -ECHO: Left ventricle EF 55 to 60%. Mild concentric LVH. Small sized basal inferior and posterior wall abnormality with hypokinesis to akinesis of the segments. Mild mitral regurgitation. Mild aortic regurgitation. Mild tricuspid regurgitation. Findings do not suggest pulmonary hypertension. -Carotid Doppler:Atherosclerosis is seen without evidence of hemodynamically significant stenosis bilaterally. Antegrade flow is shown in the vertebral arteries studies -Cervical MRI:Moderate narrowing at the craniocervical junction.. Discogenic degeneration with uncovertebral hypertrophy and facet arthrosis as above resulting in multilevel neural foraminal stenosis.. Mild central canal stenosis at C5-C6 and C6-C7. Normal signal within the imaged brainstem and cervical spinal cord. -Appreciate orthopedic spine input: No significant central canal stenosis that would likely cause the syncopal episode. Can follow-up with orthopedics as needed as outpatient Received IV fluids No recurrence of issues while hospitalized Possible enterocolitis Ongoing abdominal pain associated with constipation intermittently for many months Likely overflow diarrhea h/o choledocholithiasis --CT ABD:Possible enterocolitis versus artifact from under distention, correlate clinically. No acute intra-abdominal or intrapelvic abnormality otherwise noted. -- BioFire negative --Patient recently had EGD, ERCP as per record --Trial of Bentyl for pain control -- Discussed with GI Dr. Clarke on 09/08/2023: Recommends outpatient colonoscopy, daily MiraLAX, Metamucil -- Leukocytosis resolved Stool PCR negative tolerating current diet Advised to follow-up with gastroenterology for outpatient colonoscopy Hypokalemia Replete electrolytes as needed Monitor SVT PVCs Resume metoprolol Monitor and replace electrolytes as needed Appreciate cardiology input Urinary retention due to BPH Bladder scan as needed Added Flomax Appreciate cardiology input Replace Banda catheter if urinary retention worsens Will need to follow urology on discharge Chronic hyponatremia Sodium 132 today Monitor Thrombocytopenia No bleeding issues currently Monitor platelets Chronic systolic heart failure CAD S/P stent PVD Hyperlipidemia Continue aspirin, Plavix, statin GERD on PPI and famotidine Rheumatoid arthritis on hydroxychloroquine Past tobacco abuse as per record DVT Px: Lovenox SQ--held Re: Thrombocytopenia Code Status Full code Disposition Home Total Time Total Time Spent Total Time Spent (In Minutes): 55 minutes Discharge Plan Discharge Items Patient Disposition: Home - Self-Care Reason For Visit: SYNCOPE Discharge Diagnosis: Syncope Possible enterocolitis Vs overflow diarrhea Urinary retention Activity: Resume your previous activity Exercise/Sports: Gradually increase as tolerated Non-emergency contact: Primary Care Provider, Moisture Meter Reader and Urologist Call non-emergency contact if: you have any medication questions, your symptoms worsen, your pain is concerning for you and you have a fever Follow-up/Referrals: Todd Spivey [Primary Care Provider] - 09/15/23 10:00 am (Dr Spivey's office asks that you call the office when you get home. ) Diet: Heart Healthy Addtl Attending Provider Instructions: Follow-up with your primary care physician Dr. Spivey in 1 week Follow-up with your merchandise executive Dr. Bonner for colonoscopy as outpatient Follow-up with your urologist for further evaluation of urinary retention/BPH as recommended --Continue with MiraLAX and Metamucil daily as recommended by your merchandise executive. Hold taking MiraLAX if you have persistent diarrhea Medication changes: Your omeprazole is changed to pantoprazole as it has interaction with Plavix Your metoprolol to tartrate is changed to metoprolol succinate 25 mg daily as per cardiology You are started on tamsulosin daily to help with urinary retention Seek immediate medical attention if your symptoms reoccur or worsen Please take all medications as instructed on discharge list below. Please call if you have any questions or problems. You can reach a [facility] hospitalist on duty at [facility] 24 hours a day by calling [phone] Pending Studies at Discharge: No Stand-Alone Forms: My [facility], Smoking Cessation Medications and DC Order Prescriptions: New pantoprazole 40 mg tablet,delayed release (DR/EC) 40 mg PO DAILY Qty: 30 1RF tamsulosin 0.4 mg Capsule 0.4 mg PO HS Qty: 30 0RF metoprolol succinate 25 mg Tablet Extended Release 24 Hr 25 mg PO QAM Qty: 30 1RF dicyclomine 10 mg Capsule 10 mg PO BID PRN (Reason: Abdominal Pain) Qty: 10 0RF Continued atorvastatin 10 mg Tablet 10 mg PO QPM aspirin 81 mg Tablet,Delayed Release (Dr/Ec) 81 mg PO QAM cyanocobalamin (vitamin B-12) [Vitamin B-12] 500 mcg Tablet 500 mcg PO QAM ascorbic acid (vitamin C) 500 mg Tablet 500 mg PO QAM folic acid 1 mg Tablet 2 mg PO QAM hydroxychloroquine [Plaquenil] 200 mg Tablet 400 mg PO QAM coenzyme Q10 [CoQ-10] 100 mg Capsule 200 mg PO QPM cetirizine 10 mg tablet 10 mg PO DAILY gabapentin 300 mg capsule 300 mg PO BID dorzolamide-timolol 22.3-6.8 mg/mL drops 1 drp OPL TID zolpidem 10 mg tablet 10 mg PO HS PRN (Reason: Sleep) fluticasone propionate 50 mcg/actuation spray,suspension 2 spray INTRANASAL DAILY PRN (Reason: Congestion) Lumigan 0.01 % drops 1 drp OPB QPM famotidine 40 mg Tablet 40 mg PO HS ondansetron 8 mg tablet,disintegrating 8 mg translingual Q6H PRN (Reason: NAUSEA/VOMITING) polyethylene glycol 3350 [Miralax] 17 gram/dose Powder 17 g PO BID Rx Instructions: PER RYAN 09/02/23--USE BID X 1 WEEK, THEN DAILY THEREAFTER. turmeric root extract 1,053 mg Tablet 1,053 mg PO DAILY clopidogrel 75 mg tablet 75 mg PO DAILY Discontinued omeprazole 40 mg Capsule,Delayed Release(Dr/Ec) 40 mg PO BID metoprolol tartrate 50 mg tablet 25 mg PO BID Discharge Orders: Discharge Order (Routine); Ordered 09/09/23 Ordered By: Aroldo Ortiz Admission Data Admit Date/Time: 09/07/23 15:39 Attending Provider: Aroldo Ortiz Admit Provider: Aroldo Ortiz Primary Care Provider: Todd Spivey Other Providers: Kevan Clark; Jovana East; Satnam Snider; Melissa Love; Noam Fisher; Thom Montano; Alisia Salgado; Ion Uriarte; Nick Nunez; Roberto Prescott; Ashlie Harvey; Farhat Fenton; Tomasz Grimm; Donny Clarke; Surya Kraft; Codie Harper; Adair Falcon; Delgado Gee; Kevan Forman; Adonis Mcnamara; Giuseppe Alvarado; Rashmi Moore; Ericka Davis; Arina Coleman; Codie Watkins; Abel Dean; Migel Kennedy; Mame Holm; Kylie Nagy; Annel Sheldon; Mitch Burton; Tone Flor; Yvette Reyes
== END 2023-09-09 16:45 | disposition home or self-care (01) | DRG 392 ==
LOC: ED 23:00 → EDINP 23:00 → SUATTDRO 09-06 05:10 → 2N 09-06 06:13